=== PATIENT | male | born 1990 | race Caucasian/White ===

== ENCOUNTER 2017-05-09 11:09 | Emergency (ER) | payer SELFPAY ==
[2017-05-09 11:13] VITALS: BP 137/91
--- NOTE | 2017-05-09 11:36 | ER Document Report ---
ED Oral Problem - General Chief Complaint: Toothache Stated Complaint: TOOTH PAIN Time Seen by Provider: 05/09/17 11:22 Notes: Patient comes in the emergency room complaining of left back lower molar dental pain. Patient states he has a history of dental problems states this 1 is been there for a year or year and a half and that it only started acting up again 2- 3 days ago and now it has swelling around that tooth with a foul taste in his mouth and some white stuff coming from the gum. TRAVEL OUTSIDE OF THE [place] IN LAST 30 DAYS: No - HPI Patient complains to provider of: Swelling of face Onset: Other - 3 days Onset: Gradual Quality of pain: Sharp, Throbbing Severity: Moderate Pain Level: 3 Context: Fractured tooth Swollen jaw/face: Mild Associated symptoms: Chills, Facial pain, Headache, Jaw pain Worsened by: Heat Similar symptoms previously: Yes Recently seen / treated by doctor/dentist: No - Related Data Allergies/Adverse Reactions: No Known Allergies Allergy (Verified 05/09/17 11:12) Past Medical History - General Information source: Patient - Social History Smoking Status: Current Every Day Smoker Cigarette use (# per day): Yes - 1 pack per day Chew tobacco use (# tins/day): No Smoking Education Provided: Yes Frequency of alcohol use: None Drug Abuse: None Lives with: Family, Spouse/Significant other Family History: Reviewed & Not Pertinent Patient has suicidal ideation: No Patient has homicidal ideation: No Pulmonary Medical History: Reports: Hx Asthma Renal/ Medical History: Denies: Hx Peritoneal Dialysis - Immunizations Hx Diphtheria, Pertussis, Tetanus Vaccination: No Review of Systems - Review of Systems Constitutional: No symptoms reported EENT: Dental problem Cardiovascular: No symptoms reported Respiratory: No symptoms reported Gastrointestinal: No symptoms reported Genitourinary: No symptoms reported Male Genitourinary: No symptoms reported Musculoskeletal: No symptoms reported Skin: No symptoms reported Hematologic/Lymphatic: No symptoms reported Neurological/Psychological: No symptoms reported -: Yes All other systems reviewed and negative Physical Exam - Vital signs Vitals: Temp Pulse Resp BP Pulse Ox 98.3 F 94 16 137/91 H 99 05/09/17 11:12 05/09/17 11:12 05/09/17 11:12 05/09/17 11:12 05/09/17 11:12 Interpretation: Hypertensive - General General appearance: Alert, Other - Uncomfortable appearing In distress: Mild - HEENT Head: Normocephalic, Tenderness, Other - External exam patient's face shows some mild swelling on the left lower jaw/left mandible area. There is no fluctuance and there is no induration at this time. Mucous membranes: Normal, Moist, Other - Examination patient's oral cavity shows that he has severe dental decay throughout. The left back molar and the molar in front of that 117 and 18 total has enamel that is fracture or decayed. There is an area on the lateral side of the left back gum that is protruding with exudate that is expressible with pressure applied to the gum. There is an opening so it is draining currently. No I&D is needed. Pharynx: Normal - Respiratory Respiratory status: No respiratory distress Chest status: Nontender Breath sounds: Normal Chest palpation: Normal - Cardiovascular Rhythm: Regular Heart sounds: Normal auscultation Murmur: No - Skin Skin Temperature: Warm Skin Moisture: Dry Skin Color: Normal, [place] Course - Vital Signs Vital signs: Temp Pulse Resp BP Pulse Ox 98.3 F 94 16 137/91 H 99 05/09/17 11:12 05/09/17 11:12 05/09/17 11:12 05/09/17 11:12 05/09/17 11:12 - Transfer of Care Notes: 05/09/17 11:29 I offered patient a dental block and he refused. He also asked me or inform me the last time he had dental pain eroding for 5 mg oxycodone and he says that was not strong enough. I have informed patient that I hardly ever give narcotic medication for dental pain. Patient also states that he is going to have a an appointment with the new dental clinic that opened up just down the street. Discharge - Discharge Clinical Impression: Dental abscess Condition: Good Disposition: HOME, SELF-CARE Instructions: Abscess ([facility]), Clindamycin ([facility]), Toothache ([facility]) Additional Instructions: As we stated we cannot fix this problem here in the emergency room. You need to follow-up with a dentist as soon as possible. I highly recommend that she follow-up with that clinic that just opened as you indicated you would like to do. Also he may use warm salt water swishes. He may also use warm compresses to the side of the face to help with discomfort and swelling. I am writing you for an antibiotic a pain medication and a anti-inflammatory pain medication. As I have informed you if you do not have prescription coverage and you have a phone that handles application,s you can put in the phone and look for an eric called "Boxfish" this will give you discount on the antibiotic. I am using this antibiotic because for the type abscess you have seen pus coming from around the gumline amoxicillin will not handle this./Penicillin will not handle this. Return to ER if you have any concerns or problems or if you have any increase in size of the tooth. Prescriptions: Clindamycin HCl 300 mg PO Q6 #40 capsule Ibuprofen 800 mg PO TID PRN #30 tablet PRN Reason: For Pain Scale 4-5 Tramadol HCl 50 mg PO TID #15 tablet
== END 2017-05-09 11:40 | disposition home or self-care (01) ==
LOC: ER 11:09
DX: K04.7 Periapical abscess without sinus (principal); K08.89 Other specified disorders of teeth and supporting structures; R22.0 Localized swelling, mass and lump, head; F17.210 Nicotine dependence, cigarettes, uncomplicated
CPT/HCPCS: 99282

== ENCOUNTER 2018-12-16 12:27 | Emergency (ER) | payer SELFPAY ==
--- NOTE | 2018-12-16 15:01 | ER Document Report ---
HPI - HPI Time Seen by Provider: 12/16/18 14:31 Pain Level: 1 Notes: Patient is a 28-year-old male presented to the emergency department chief complaint of bilateral feet pain and rash. 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 Patient denies any history of similar incidences. Past Medical History - General Information source: Patient - Social History Smoking Status: Current Every Day Smoker Chew tobacco use (# tins/day): No Frequency of alcohol use: Social Drug Abuse: None Family History: Reviewed & Not Pertinent Patient has suicidal ideation: No Patient has homicidal ideation: No Pulmonary Medical History: Reports: Hx Asthma Renal/ Medical History: Denies: Hx Peritoneal Dialysis - Immunizations Hx Diphtheria, Pertussis, Tetanus Vaccination: No Vertical Provider Document - CONSTITUTIONAL Notes: PHYSICAL EXAMINATION: GENERAL: Well-appearing, well-nourished and in no acute distress. HEAD: Atraumatic, normocephalic. EYES: Pupils equal round extraocular movements intact, conjunctiva are normal. ENT: Nares patent NECK: Normal range of motion LUNGS: No respiratory distress Musculoskeletal: Normal range of motion NEUROLOGICAL: Normal speech, normal gait. PSYCH: Normal mood, normal affect. SKIN: Multiple red areas with satellite lesions, induration, no fluctuance noted to bilateral feet and ankles. - INFECTION CONTROL TRAVEL OUTSIDE OF THE [place] IN LAST 30 DAYS: No Course - Re-evaluation Re-evalutation: Patient's physical examination is most consistent with cellulitis. Patient will be started on antibiotics and encouraged to use Epsom salt soaks as discussed. ED return precautions were discussed and patient verbalized understanding and agreement with same. - Vital Signs Vital signs: Temp Pulse Resp BP Pulse Ox 98.1 F 75 16 141/88 H 98 12/16/18 12:34 12/16/18 12:34 12/16/18 12:34 12/16/18 12:34 12/16/18 12:34 Discharge - Discharge Clinical Impression: Skin infection Condition: Stable Disposition: HOME, SELF-CARE Additional Instructions: Please take antibiotics as prescribed. Please wear clean socks every day. When you get home from work please take your boots and socks off and allow the areas to air dry. Return to the emergency department for any new or worsening symptom s. For the pain please take ibuprofen 600 mg every 6 hours. Prescriptions: Cephalexin [Cephalexin 500 MG Tablet] 1 tab PO BID #14 tablet
[2018-12-16 15:16] VITALS: BP 136/74
== END 2018-12-16 15:17 | disposition home or self-care (01) ==
LOC: ER 12:27
DX: L08.9 Local infection of the skin and subcutaneous tissue, unspecified (principal); M79.671 Pain in right foot; M79.672 Pain in left foot; F17.200 Nicotine dependence, unspecified, uncomplicated; J45.909 Unspecified asthma, uncomplicated
CPT/HCPCS: 99283

== ENCOUNTER 2019-04-17 17:24 | Emergency (ER) | payer SELFPAY ==
[2019-04-17] MEDS ORDERED: KETOROLAC TROMETHAMINE INJ/PF 30 MG/1 ML SDV IV ONE ×2 (17:32→18:17)
--- NOTE | 2019-04-17 17:33 | ER Document Report ---
ED Medical Screen (RME) - General Chief Complaint: Flank Pain Stated Complaint: FLANK PAIN Time Seen by Provider: 04/17/19 17:30 Mode of Arrival: Ambulatory Information source: Patient Notes: Patient presents complaining of right flank pain that started yesterday. Patient denies any fever nausea vomiting or urinary symptoms. Patient denies any significant medical history. I have greeted and performed a rapid initial assessment of this patient. A comprehensive ED assessment and evaluation of the patient, analysis of test results and completion of the medical decision making process will be conducted by additional ED providers. TRAVEL OUTSIDE OF THE [place] IN LAST 30 DAYS: No - Related Data Allergies/Adverse Reactions: No Known Allergies Allergy (Verified 12/16/18 12:28) Past Medical History - Social History Chew tobacco use (# tins/day): No Frequency of alcohol use: Occasional Drug Abuse: Marijuana Pulmonary Medical History: Reports: Hx Asthma Renal/ Medical History: Denies: Hx Peritoneal Dialysis - Immunizations Hx Diphtheria, Pertussis, Tetanus Vaccination: No Physical Exam - Back Back: CVA tenderness - Right
[2019-04-17] MEDS ORDERED: NORMAL SALINE 1000 ML 1,000 ML IV ONE (17:45)
[2019-04-17] MEDS ORDERED: METOCLOPRAMIDE HCL INJ/PF 10 MG/2 ML SDV IV ONE (18:18)
--- NOTE | 2019-04-17 18:21 | ER Document Report ---
ED GI/ - General Chief Complaint: Flank Pain Stated Complaint: FLANK PAIN Time Seen by Provider: 04/17/19 17:30 Mode of Arrival: Ambulatory Notes: Patient is a otherwise healthy 28-year-old male presents to the emergency department for right flank pain. Patient voices his flank pain started yesterday. Patient's denying any dysuria, vomiting but is admitting to nausea. Patient is denying any penile discharge or testicle pain. Patient denies any history of kidney stones or any trauma noted to his right back. Patient's denying any radiation of the pain. Patient voices he also has a generalized headache because he feels as though "the pain is making me nauseous." TRAVEL OUTSIDE OF THE [place] IN LAST 30 DAYS: No - Related Data Allergies/Adverse Reactions: No Known Allergies Allergy (Verified 12/16/18 12:28) Past Medical History - General Information source: Patient - Social History Smoking Status: Current Every Day Smoker Chew tobacco use (# tins/day): No Frequency of alcohol use: Occasional Drug Abuse: Marijuana Family History: Reviewed & Not Pertinent Patient has suicidal ideation: No Patient has homicidal ideation: No Pulmonary Medical History: Reports: Hx Asthma Renal/ Medical History: Denies: Hx Peritoneal Dialysis - Immunizations Hx Diphtheria, Pertussis, Tetanus Vaccination: No Review of Systems - Review of Systems Constitutional: denies: Fever EENT: No symptoms reported Cardiovascular: No symptoms reported Respiratory: No symptoms reported Gastrointestinal: See HPI Genitourinary: See HPI Male Genitourinary: See HPI Musculoskeletal: See HPI Skin: No symptoms reported Hematologic/Lymphatic: No symptoms reported Neurological/Psychological: No symptoms reported Physical Exam - Vital signs Vitals: Temp Pulse Resp BP Pulse Ox 97.8 F 92 22 H 152/90 H 100 04/17/19 17:32 04/17/19 17:32 04/17/19 17:32 04/17/19 17:32 04/17/19 17:32 - Notes Notes: GENERAL: Alert, interacts well. No acute distress. HEAD: Normocephalic, atraumatic. EYES: Pupils equal, round, and reactive to light. Extraocular movements intact. ENT: Oral mucosa moist, tongue midline. NECK: Full range of motion. Supple. Trachea midline. LUNGS: Clear to auscultation bilaterally, no wheezes, rales, or rhonchi. No respiratory distress. HEART: Regular rate and rhythm. No murmur ABDOMEN: Soft, non-tender. Non-distended. Bowel sounds present in all 4 naz drants. EXTREMITIES: Moves all 4 extremities spontaneously. No edema, normal radial and dorsalis pedis pulses bilaterally. No cyanosis. BACK: no cervical, thoracic, lumbar midline tenderness. No saddle anesthesia, normal distal neurovascular exam. Right CVA tenderness noted, no left CVA tenderness noted. NEUROLOGICAL: Alert and oriented x3. Normal speech. cranial nerves II through XII grossly intact PSYCH: Normal affect, normal mood. SKIN: Warm, dry, normal turgor. No rashes or lesions noted. 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 Testicles nonerythematous, nontender bilaterally, circumcised penis no active discharge at the meatus. Course - Re-evaluation Re-evalutation: 04/17/19 20:06 Laboratory 04/17/19 04/17/19 04/17/19 18:05 18:05 19:29 WBC 14.5 H RBC 4.58 Hgb 13.9 Hct 41.9 MCV 92 MCH 30.4 MCHC 33.2 RDW 13.7 Plt Count 337 Lymph % (Auto) 10.4 L [place] % (Auto) 11.0 Eos % (Auto) 0.7 Baso % (Auto) 0.4 Absolute Neuts (auto) 11.2 H Absolute Lymphs (auto) 1.5 Absolute Monos (auto) 1.6 H Absolute Eos (auto) 0.1 Absolute Basos (auto) 0.1 Seg Neutrophils % 77.5 Sodium 139.1 Potassium 4.1 Chloride 101 Carbon Dioxide 25 Anion Gap 13 BUN 16 Creatinine 0.83 Est GFR ( Amer) > 60 Est GFR (MDRD) Non-Af > 60 Glucose 89 Calcium 9.9 Total Bilirubin 0.9 Direct Bilirubin 0.1 Neonat Total Bilirubin Not Reportable Neonat Direct Bilirubin Not Reportable Neonat Indirect Bili Not Reportable AST 34 ALT 56 Alkaline Phosphatase 55 Total Protein 7.9 Albumin 4.4 Urine Color YELLOW Urine Appearance CLEAR Urine pH 6.0 Ur Specific [place] 1.028 Urine Protein 100 H Urine Glucose (UA) NEGATIVE Urine Ketones NEGATIVE Urine Blood SMALL H Urine Nitrite (Reflex) NEGATIVE Urine Bilirubin NEGATIVE Urine Urobilinogen 2.0 H Leukocyte Esterase Rfl NEGATIVE Urine RBC (Auto) 22 Urine WBC (Reflex) 3 Squamous Epi Cells Auto <1 Urine Mucus (Auto) FEW Urine Ascorbic Acid NEGATIVE Abdomen/Pelvis CT 04/17/19 18:18 IMPRESSION: Numerous bilateral renal lesions of low and heterogeneous attenuati on, findings consistent with polycystic kidney disease. Correlate with clinical findings. No evidence of urinary tract calculus or hydronephrosis. Discussed patient's labs and CT results with him at bedside. Discussed need for close follow-up with nephrology. Discussed to stay away from NSAIDs until follow-up with nephrology and cleared. Patient voices he overall does feel better after treatments in the emergency department. Stable for discharge - Vital Signs Vital signs: Temp Pulse Resp BP Pulse Ox 97.8 F 92 22 H 152/90 H 100 04/17/19 17:32 04/17/19 17:32 04/17/19 17:32 04/17/19 17:32 04/17/19 17:32 - Laboratory Result Diagrams: 04/17/19 18:05 04/17/19 18:05 Laboratory results interpreted by me: 04/17/19 04/17/19 18:05 19:29 WBC 14.5 H Lymph % (Auto) 10.4 L Absolute Neuts (auto) 11.2 H Absolute Monos (auto) 1.6 H Urine Protein 100 H Urine Blood SMALL H Urine Urobilinogen 2.0 H Discharge - Discharge Clinical Impression: Polycystic kidney disease Condition: Stable Disposition: HOME, SELF-CARE Additional Instructions: As we discussed you have been seen and treated in the emergency department for your flank pain. Your CT images show polycystic kidney disease. You should follow-up with nephrology, phone numbers will be provided in this packet. Please stay away from NSAIDs until you follow-up with nephrology and are cleared. This means no Motrin, ibuprofen. Please return to the emergency department for any concerns. Forms: Return to Work Referrals: REAL ANDREA MD [ACTIVE STAFF] - Follow up as needed
[2019-04-17 18:27] LABS: ABSOLUTE BASOPHILS # (AUTO) 0.1 10^3/uL (0.0-0.2); ABSOLUTE EOSINOPHILS # (AUTO) 0.1 10^3/uL (0.0-0.6); ABSOLUTE LYMPHOCYTES (AUTO) 1.5 10^3/uL (0.5-4.7); ABSOLUTE MONOCYTES (AUTO) 1.6 10^3/uL (0.1-1.4); ABSOLUTE NEUT (AUTO) 11.2 10^3/uL (1.7-8.2); BASOPHILS % (AUTO) 0.4 % (0-2); EOSINOPHILS % (AUTO) 0.7 % (0-6); HEMATOCRIT 41.9 % (37.9-51.0); HEMOGLOBIN 13.9 g/dL (13.5-17.0); LYMPHOCYTES % (AUTO) 10.4 % (13-45); MEAN CORPUSCULAR HEMOGLOBIN 30.4 pg (27.0-33.4); MEAN CORPUSCULAR HGB CONC 33.2 g/dL (32.0-36.0); MEAN CORPUSCULAR VOLUME 92 fl (80-97); PLATELET COUNT 337 10^3/uL (150-450); RED BLOOD COUNT 4.58 10^6/uL (4.35-5.55); RED CELL DISTRIBUTION WIDTH 13.7 % (11.5-14.0); SEGMENTED NEUTROPHILS % (AUTO) 77.5 % (42-78); TOTAL CELLS COUNTED % (AUTO) 100 %; WHITE BLOOD COUNT 14.5 10^3/uL (4.0-10.5)
[2019-04-17 18:41] LABS: ALBUMIN 4.4 g/dL (3.5-5.0); ALKALINE PHOSPHATASE 55 U/L (38-126); ANION GAP 13 (5-19); ASPARTATE AMINO TRANSFERASE 34 U/L (17-59); BILIRUBIN,DIRECT 0.1 mg/dL (0.0-0.4); BILIRUBIN,TOTAL 0.9 mg/dL (0.2-1.3); BLOOD UREA NITROGEN 16 mg/dL (7-20); CALCIUM 9.9 mg/dL (8.4-10.2); CARBON DIOXIDE 25 mmol/L (22-30); CHLORIDE 101 mmol/L (98-107); GLUCOSE 89 mg/dL (75-110); POTASSIUM 4.1 mmol/L (3.6-5.0); TOTAL PROTEIN 7.9 g/dL (6.3-8.2)
--- NOTE | 2019-04-17 19:20 | RADIOLOGY REPORT (SQ) ---
EXAM DESCRIPTION: CT ABD/PELVIS NO ORAL OR IV COMPLETED DATE/TIME: 04/17/2019 7:00 pm REASON FOR STUDY: R flank pain COMPARISON: None. TECHNIQUE: CT scan of the abdomen and pelvis performed without intravenous or oral contrast. Images reviewed with lung, soft tissue, and bone windows. Reconstructed coronal and sagittal MPR images revi ewed. All images stored on PACS. All CT scanners at this facility use dose modulation, iterative reconstruction, and/or weight based d osing when appropriate to reduce radiation dose to as low as reasonably achievable (ALARA). [facility]: Dose Right [facility]: CareDose [facility]: Dose Right [facility]: Teradose 4D [facility]: Smart Foneshow RADIATION DOSE: 272 mGy cm LIMITATIONS: None. FINDINGS: LOWER CHEST: No significant findings. No nodules or infiltrates. NON-CONTRASTED LIVER, SPLEEN, ADRENALS: Evaluation limited by lack of IV contrast. No identified sign ificant masses. PANCREAS: No masses. No peripancreatic inflammatory changes. GALLBLADDER: No identified stones by CT criteria. No inflammatory changes to suggest cholecystitis. RIGHT KIDNEY AND URETER: Numerous renal lesions of low and heterogeneous attenuation. Assessment limi gini by lack of IV contrast. No significant calcifications. No hydronephrosis or hydroureter. LEFT KIDNEY AND URETER: Numerous renal lesions of low and heterogeneous attenuation. Assessment limi gini by lack of IV contrast. No significant calcifications. No hydronephrosis or hydroureter. AORTA AND RETROPERITONEUM: No aneurysm. No retroperitoneal masses or adenopathy. BOWEL AND PERITONEAL CAVITY: No obvious masses or inflammatory changes. No free fluid. APPENDIX: Normal. PELVIS, BLADDER, AND ABDOMINAL WALL:No abnormal masses. No free fluid. Bladder normal. BONES: No significant findings. OTHER: No other significant finding. IMPRESSION: Numerous bilateral renal lesions of low and heterogeneous attenuation, findings consiste nt with polycystic kidney disease. Correlate with clinical findings. No evidence of urinary tract c alculus or hydronephrosis. COMMENT: Quality ID # [id number]: Final reports with documentation of one or more dose reduction techniques (e.g., Automated exposure control, adjustment of the mA and/or kV according to patient size, use of iterative reconstruction technique) TECHNICAL DOCUMENTATION: JOB ID: [id number] [employer]- All Rights Reserved Reading location - IP/workstation name: [email or web address]
[2019-04-17 19:54] LABS: APPEARANCE,URINE CLEAR; BILIRUBIN,URINE NEGATIVE (NEGATIVE); COLOR,URINE YELLOW; GLUCOSE, URINE NEGATIVE (NEGATIVE); KETONES,URINE NEGATIVE (NEGATIVE); PROTEIN,URINE 100 mg/dL (NEGATIVE); URINE SPECIFIC GRAVITY 1.028
[2019-04-17] MEDS ORDERED: HYDROCODONE/ACETAMINOPHEN 5-325 MG (6 TAB/ER DISP) PO PRN (20:08)
[2019-04-17 20:22] VITALS: BP 116/67
== END 2019-04-17 20:31 | disposition home or self-care (01) ==
LOC: ER 17:24
DX: Q61.3 Polycystic kidney, unspecified (principal); R10.9 Unspecified abdominal pain; F17.200 Nicotine dependence, unspecified, uncomplicated
CPT/HCPCS: 36415; 85025; 80053; 81001; 74176; J1885; J2765; J7030; 96361; 96374; 96375; 96376; 99284

== ENCOUNTER 2019-04-22 13:11 | Inpatient (IN) | payer SELFPAY ==
--- NOTE | 2019-04-22 14:03 | ER Document Report ---
ED Medical Screen (RME) - General Chief Complaint: Flank Pain Stated Complaint: FLANK PAIN Time Seen by Provider: 04/22/19 14:01 Mode of Arrival: Ambulatory Information source: Patient Notes: 28-year-old male presented to ED for right flank pain. He states he was here Thursday was told he had polycystic kidney disease he was given some medicine for the pain and was told to follow-up with urology or nephrology. He states he has not been able to get up with anybody as yet. He is here because he has increase in pain. Denies any nausea or vomiting. States he smokes a pack a day states he does not drink or use any illicit drugs. I have greeted and performed a rapid initial assessment of this patient. A comprehensive ED assessment and evaluation of the patient, analysis of test re sults and completion of medical decision making process will be conducted by an additional ED providers. TRAVEL OUTSIDE OF THE [place] IN LAST 30 DAYS: No - Related Data Allergies/Adverse Reactions: No Known Allergies Allergy (Verified 12/16/18 12:28) Past Medical History Pulmonary Medical History: Reports: Hx Asthma Renal/ Medical History: Denies: Hx Peritoneal Dialysis - Immunizations Hx Diphtheria, Pertussis, Tetanus Vaccination: No Physical Exam - Vital signs Vitals: Temp Pulse Resp BP Pulse Ox 98.3 F 107 H 18 131/68 H 100 04/22/19 13:21 04/22/19 13:21 04/22/19 13:21 04/22/19 13:21 04/22/19 13:21 Course - Vital Signs Vital signs: Temp Pulse Resp BP Pulse Ox 98.3 F 107 H 18 131/68 H 100 04/22/19 13:21 04/22/19 13:21 04/22/19 13:21 04/22/19 13:21 04/22/19 13:21
[2019-04-22 14:35] LABS: ABSOLUTE BASOPHILS # (AUTO) 0.1 10^3/uL (0.0-0.2); ABSOLUTE LYMPHOCYTES (AUTO) 1.1 10^3/uL (0.5-4.7); ABSOLUTE MONOCYTES (AUTO) 1.9 10^3/uL (0.1-1.4); ABSOLUTE NEUT (AUTO) 15.8 10^3/uL (1.7-8.2); BASOPHILS % (AUTO) 0.3 % (0-2); EOSINOPHILS % (AUTO) 0.1 % (0-6); HEMATOCRIT 37.6 % (37.9-51.0); LYMPHOCYTES % (AUTO) 5.7 % (13-45); MEAN CORPUSCULAR HEMOGLOBIN 31.8 pg (27.0-33.4); MEAN CORPUSCULAR HGB CONC 34.6 g/dL (32.0-36.0); MEAN CORPUSCULAR VOLUME 92 fl (80-97); MONOCYTES % (AUTO) 10.3 % (3-13); PLATELET COUNT 326 10^3/uL (150-450); RED BLOOD COUNT 4.09 10^6/uL (4.35-5.55); RED CELL DISTRIBUTION WIDTH 13.4 % (11.5-14.0); SEGMENTED NEUTROPHILS % (AUTO) 83.6 % (42-78); TOTAL CELLS COUNTED % (AUTO) 100 %; WHITE BLOOD COUNT 18.9 10^3/uL (4.0-10.5)
[2019-04-22 14:41] LABS: APPEARANCE,URINE SLIGHTLY-CLOUDY; BILIRUBIN,URINE NEGATIVE (NEGATIVE); COLOR,URINE YELLOW; GLUCOSE, URINE NEGATIVE (NEGATIVE); KETONES,URINE NEGATIVE (NEGATIVE); PROTEIN,URINE 100 mg/dL (NEGATIVE); URINE SPECIFIC GRAVITY 1.027; UROBILINOGEN,URINE NEGATIVE mg/dL (<2.0)
[2019-04-22 15:01] LABS: ALBUMIN 3.9 g/dL (3.5-5.0); ALKALINE PHOSPHATASE 69 U/L (38-126); ANION GAP 9 (5-19); ASPARTATE AMINO TRANSFERASE 25 U/L (17-59); BILIRUBIN,DIRECT 0.2 mg/dL (0.0-0.4); BILIRUBIN,TOTAL 0.6 mg/dL (0.2-1.3); BLOOD UREA NITROGEN 9 mg/dL (7-20); CALCIUM 9.3 mg/dL (8.4-10.2); CARBON DIOXIDE 30 mmol/L (22-30); CHLORIDE 98 mmol/L (98-107); GLUCOSE 133 mg/dL (75-110); POTASSIUM 4.1 mmol/L (3.6-5.0); TOTAL PROTEIN 7.3 g/dL (6.3-8.2)
--- NOTE | 2019-04-22 16:06 | RADIOLOGY REPORT (SQ) ---
EXAM DESCRIPTION: U/S RETROPERITON (RENAL/AORTA) COMPLETED DATE/TIME: 04/22/2019 3:54 pm REASON FOR STUDY: Right flank pain COMPARISON: None. TECHNIQUE: Dynamic and static grayscale images acquired of the kidneys and bladder and recorded on P ACS. Additional selected color Doppler and spectral images recorded. LIMITATIONS: None. FINDINGS: RIGHT KIDNEY: 14.2 cm. Multiple cysts, some with dependent echoes. Largest approximate ly 3 cm. No solid or suspicious masses. No hydronephrosis. No calcifications. LEFT KIDNEY: 13.6 cm. Multiple cysts, some with dependent echoes. No solid or suspicious masses. No hydronephrosis. 5 mm calculus midpole. BLADDER: No masses. OTHER FINDINGS: No other significant finding. IMPRESSION: Polycystic kidneys. 5 mm nonobstructing left renal calculus. TECHNICAL DOCUMENTATION: JOB ID: [id number] [employer]- All Rights Reserved Reading location - IP/workstation name: [email or web address]
[2019-04-22] MEDS ORDERED: LIDOCAINE 5% (700 MG) TRANSDERMAL ADH..PATCH TP ONE (16:47)
[2019-04-22] MEDS ORDERED: CYCLOBENZAPRINE HCL 10 MG TABLET PO ONE (16:48)
--- NOTE | 2019-04-22 17:31 | RADIOLOGY REPORT (SQ) ---
EXAM DESCRIPTION: CHEST 2 VIEWS COMPLETED DATE/TIME: 04/22/2019 5:20 pm REASON FOR STUDY: rib pain, cough COMPARISON: None. EXAM PARAMETERS: NUMBER OF VIEWS: two views TECHNIQUE: Digital Frontal and Lateral radiographic views of the chest acquired. RADIATION DOSE: NA LIMITATIONS: none FINDINGS: LUNGS AND PLEURA: No opacities, masses or pneumothorax. No pleural effusion. MEDIASTINUM AND HILAR STRUCTURES: No masses or contour abnormalities. HEART AND VASCULAR STRUCTURES: Heart normal size. No evidence for failure. BONES: No acute findings. HARDWARE: None in the chest. OTHER: No other significant finding. IMPRESSION: 1. NO ACUTE RADIOGRAPHIC FINDING IN THE CHEST 2. In view of the given history, further evaluation with plain film right rib detail series may be h elpful if clinically indicated. TECHNICAL DOCUMENTATION: JOB ID: [id number] [employer]- All Rights Reserved Reading location - IP/workstation name: [email or web address]
[2019-04-22] MEDS ORDERED: ACETAMINOPHEN 325 MG TABLET PO ONE (18:15)
[2019-04-22 18:38] LABS: INTERNATIONAL RATION (INR) 1.15; PROTHROMBIN TIME 14.8 SEC (11.4-15.4)
[2019-04-22 19:40] LABS: VENOUS BLOOD BASE EXCESS 2.9 mmol/L; VENOUS BLOOD HCO3 26.5 mmol/L (20-32); VENOUS BLOOD PCO2 37.2 mmHg (35-63); VENOUS BLOOD PH 7.47 (7.30-7.42)
[2019-04-22] MEDS ORDERED: VANCOMYCIN HCL INJ 1000 MG VIAL IV ONE (20:02)
[2019-04-22] MEDS ORDERED: PIPERACILLIN/TAZOBACTAM 3.375 GM VIAL IV ONE (20:02)
--- NOTE | 2019-04-22 20:27 | RADIOLOGY REPORT (SQ) ---
EXAM DESCRIPTION: CT CHEST ANGIOGRAPHY WITHOUT THEN WITH IV CONTRAST COMPLETED DATE/TME: 04/22/2019 18:29 EXAM: CT CHEST ANGIOGRAPHY WITHOUT THEN WITH IV CONTRAST HISTORY: fever, IVDA, pleuritic CP COMPARISON: None Available TECHNIQUE: Contiguous axial images of the chest were obtained from the thoracic inlet to the level of the upper abdomen after the administration of intravenous contrast followed by reconstruction images. Volume rendering images were performed. This exam was performed according to our departmental dose-optimization program, which includes automated exposure control, adjustment of the mA and/or kV according to patient size and/or use of iterative reconstruction technique. FINDINGS: The aorta is of normal contour and tapering. There is no discrete filling defect within the pulmonary arterial system to suggest pulmonary emboli. There is no pleural fluid collection. Linear and bandlike opacities at the lower lungs may represent scar versus subsegmental atelectasis. There is a small amount of fluid within the superior pericardial. There is no parenchymal consolidation or pneumothorax. Multiple partially visualized renal cysts compatible with polycystic renal disease.. IMPRESSION: No CT evidence of acute pulmonary emboli. Linear and bandlike opacities at the lower lungs may represent scar versus subsegmental atelectasis.
--- NOTE | 2019-04-22 21:49 | EKG REPORT ---
SEVERITY:- OTHERWISE NORMAL ECG - SINUS TACHYCARDIA : Confirmed by: Ken Strange MD 22-Apr-2019 21:48:51
[2019-04-22] MEDS ORDERED: NORMAL SALINE 1000 ML 1,000 ML IV ONE (22:07)
--- NOTE | 2019-04-22 22:36 | ER Document Report ---
Entered by XIAO IRWIN SCRIBE 04/22/19 1648 Acting as scribe for:JELLY WHARTON DO ED GI/ - General Chief Complaint: Flank Pain Stated Complaint: FLANK PAIN Time Seen by Provider: 04/22/19 14:01 Mode of Arrival: Ambulatory Information source: Patient Notes: Patient is a 28-year-old male who presents to the emergency department today for complaints of right sided reproducible chest wall pain. Patient states he is worried that it could be his kidney as he has a history of polycystic kidney disease. Patient complains of subjective fevers. Patient states it hurts when he moves. Patient denies any cough, trauma, or abdominal pain. TRAVEL OUTSIDE OF THE [place] IN LAST 30 DAYS: No - Related Data Allergies/Adverse Reactions: No Known Allergies Allergy (Verified 12/16/18 12:28) Past Medical History - General Information source: Patient - Social History Smoking Status: Current Every Day Smoker Cigarette use (# per day): Yes Chew tobacco use (# tins/day): No Frequency of alcohol use: None Drug Abuse: None Family History: Reviewed & Not Pertinent Patient has suicidal ideation: No Patient has homicidal ideation: No Pulmonary Medical History: Reports: Hx Asthma Renal/ Medical History: Reports: Other - Polycystic kidney disease - Immunizations Hx Diphtheria, Pertussis, Tetanus Vaccination: No Review of Systems - Review of Systems Constitutional: See HPI, Other - subjective fevers EENT: No symptoms reported Cardiovascular: No symptoms reported Respiratory: See HPI, Hurts to breathe - and move, Other - right sided chest wall pain. denies: Cough Gastrointestinal: denies: Abdominal pain Genitourinary: No symptoms reported Male Genitourinary: No symptoms reported Musculoskeletal: No symptoms reported Skin: No symptoms reported Hematologic/Lymphatic: No symptoms reported Neurological/Psychological: No symptoms reported -: Yes All other systems reviewed and negative Physical Exam - Vital signs Vitals: Temp Pulse Resp BP Pulse Ox 98.3 F 107 H 18 131/68 H 100 04/22/19 13:21 04/22/19 13:21 04/22/19 13:21 04/22/19 13:21 04/22/19 13:21 Interpretation: Normal - General General appearance: Appears well, Alert In distress: None - Cachectic. Poor dentition. Track cruz bilateral upper and lower extremities. - HEENT Head: Normocephalic, Atraumatic Eyes: Normal Pupils: PERRL - Respiratory Respiratory status: No respiratory distress Chest status: Tender - Right lower chest wall tenderness to palpation Breath sounds: Normal Chest palpation: Normal - Cardiovascular Rhythm: Regular, Tachycardia Heart sounds: Normal auscultation Murmur: No - Abdominal Inspection: Normal Distension: No distension Bowel sounds: Normal Tenderness: Nontender Organomegaly: No organomegaly - Back Back: Normal, CVA tenderness - Right CVA - Extremities General upper extremity: Normal inspection, Nontender, Normal color, Normal ROM, Normal temperature General lower extremity: Normal inspection, Nontender, Normal color, Normal ROM, Normal temperature, Normal weight bearing. No: Karlee's sign - Neurological Neuro grossly intact: Yes Cognition: Normal Orientation: AAOx4 Rudy Coma Scale Eye Opening: Spontaneous Rudy Coma Scale Verbal: Oriented [place] Coma Scale Motor: Obeys Commands Rudy Coma Scale Total: 15 Speech: Normal Motor strength normal: LUE, RUE, LLE, RLE Sensory: Normal - Psychological Associated symptoms: Normal affect, Normal mood - Skin Skin Temperature: Warm Skin Moisture: Dry Skin Color: Normal Course - Re-evaluation Re-evalutation: 04/22/19 22:33 Patient is a 28-year-old male who came into the emergency department complaining of right side pain. Patient had CT 4 days ago with no acute findings. Renal ultrasound with no acute findings. Chest x-ray with no acute findings. Pain is worse with movement. Patient was going to be potentially discharged but then s piked a fever of 102.8. Admits to history of IV drug abuse. Last use about a week ago. Concern for endocarditis. CTA chest performed with no evidence for acute abnormalities. No skin lesions. No evidence for meningitis. No back pain or concern for epidural abscess. Vancomycin and Zosyn were initiated in the emergency department. Blood and urine cultures have been sent. Patient has been discussed with the hospitalist service and will be admitted to a medical bed. He is agreeable to this plan. - Vital Signs Vital signs: Temp Pulse Resp BP Pulse Ox 99.2 F 92 18 116/68 97 04/22/19 21:52 04/22/19 21:52 04/22/19 21:52 04/22/19 21:52 04/22/19 21:52 - Laboratory Result Diagrams: 04/22/19 14:23 04/22/19 14:23 Laboratory results interpreted by me: 04/22/19 04/22/19 04/22/19 14:23 14:23 14:23 WBC 18.9 H RBC 4.09 L Hgb 13.0 L Hct 37.6 L Lymph % (Auto) 5.7 L Absolute Neuts (auto) 15.8 H Absolute Monos (auto) 1.9 H Seg Neutrophils % 83.6 H VBG pH Glucose 133 H POC Glucose Urine Protein 100 H Urine Blood SMALL H 04/22/19 04/22/19 18:36 18:55 WBC RBC Hgb Hct Lymph % (Auto) Absolute Neuts (auto) Absolute Monos (auto) Seg Neutrophils % VBG pH 7.47 H Glucose POC Glucose 129 H Urine Protein Urine Blood Critical Care Note - Critical Care Note Total time excluding time spent on procedures (mins): 40 - Evaluation and management of fever and a IV drug abuser, re-evaluations, work-up of fever of unknown origin, counseling of patient and family Discharge - Discharge Clinical Impression: IV drug abuse Fever Qualifiers: Fever type: unspecified Qualified Code(s): R50.9 - Fever, unspecified Condition: Stable Disposition: ADMITTED INPATIENT Admitting Provider: Trev (Hospitalist) Unit Admitted: Medical Floor Prescriptions: Cyclobenzaprine HCl [Flexeril 10 Mg Tablet] 10 mg PO TID #30 tablet Lidocaine [Lidoderm 5% (700 mg) Transdermal Patch] 1 patch TP DAILY #30 adh..patch I personally performed the services described in the documentation, reviewed and edited the documentation which was dictated to the scribe in my presence, and it accurately records my words and actions.
[2019-04-22] MEDS ORDERED: MEROPENEM 1 GM VIAL IV SCH (23:00)
[2019-04-22] MEDS ORDERED: CHLORPROMAZINE HCL INJ 25 MG/1 ML AMPULE IV PRN (23:02)
[2019-04-22] MEDS ORDERED: ACETAMINOPHEN 325 MG TABLET PO PRN (23:02)
[2019-04-22] MEDS ORDERED: DIAZEPAM INJ 10 MG/2 ML DISP.SYRIN IV PRN (23:02)
[2019-04-22] MEDS ORDERED: NALBUPHINE HCL INJ 10 MG/1 ML AMPULE IV PRN ×3 (23:04→23:14)
[2019-04-22] MEDS ORDERED: HYDRALAZINE HCL INJ/PF 20 MG/1 ML SDV IV PRN (23:04)
[2019-04-22] MEDS ORDERED: LEVALBUTEROL HCL NEB 0.63 MG/3 ML AMPUL NEB PRN (23:04)
[2019-04-22] MEDS ORDERED: NICOTINE 21 MG/24 HR PATCH.TD24 TD PRN (23:04)
[2019-04-22] MEDS: DIAZEPAM 5 MG TABLET PO SCH (23:40)
[2019-04-23] MEDS ORDERED: IBUPROFEN 800 MG TABLET PO PRN (00:57)
[2019-04-23] MEDS ORDERED: MEROPENEM 1 GM VIAL IV PRN (01:00)
--- NOTE | 2019-04-23 02:59 | PDOC H&P ---
History of Present Illness Admission Date/PCP: 04/22/19 22:47 No local PCP Patient complains of: Right chest pain History of Present Illness: AMARA HAGEN is a 28 year old male who represented to the emergency room with a one-week history of right-sided chest pain. He admits severe sharp stabbing pain in his right lower lateral and posterior thoracic region that has been constant for the last 4 days. The pain is worsened with pressure to the area, chest movement or physical activity. The pain has been accompanied by subjective episodic fever with chills. He denies other associated or accompanying signs and symptoms. He denies prior similar episodes. He further admits to the use of intravenous heroin and acknowledges that his last use was 7 to 10 days ago. He has not identified any other aggravating or ameliorating factors for his pain. In the emergency room he was found to have a negative CTA of the chest but did have a fever of 102.8 F and an 18,900 white blood count. Initial intravenous antibiotic doses of vancomycin and Zosyn were given by the emergency room provider prior to consulting the hospitalist service. Patient was subsequently admitted to the hospital for further evaluation and treatment. Past Medical History Cardiac Medical History: Denies: Coronary Artery Disease, Hypertension Pulmonary Medical History: Reports: Asthma Denies: Chronic Obstructive Pulmonary Disease (COPD), Pneumonia, Respiratory Failure EENT Medical History: Denies: Ears - Hearing loss, Nose - Allergic rhinitis Neurological Medical History: Denies: Hemorrhagic CVA, Ischemic CVA, Multiple Sclerosis, Seizures Endocrine Medical History: Denies: Diabetes Mellitus Type 1, Diabetes Mellitus Type 2, Hyperthyroidism, Hypothyroidism, Obesity Renal/ Medical History: Reports: Other - Polycystic kidney disease Denies: Chronic Kidney Disease, Nephrolithiasis Malignancy Medical History: Reports: None GI Medical History: Denies: Cirrhosis, Crohn's Disease, Gastroesophageal Reflux Disease, Hepatitis, Peptic Ulcer Disease, Ulcerative Colitis Musculoskeltal Medical History: Denies: Arthritis, Gout Skin Medical History: Denies: Eczema, Psoriasis Psychiatric Medical History: Reports: Substance Abuse, Tobacco Dependency Denies: Alcohol Dependency Hematology: Denies: Anemia, Bleeding Tendencies Infectious Medical History: Reports: None Past Surgical History Past Surgical History: Reports: None Social History Information Source: Patient Lives with: Parents Smoking Status: Current Every Day Smoker Cigarettes Packs Per Day: 1 Electronic Cigarette use?: No Frequency of Alcohol Use: Rare Hx Recreational Drug Use: Yes Drugs: Heroin Hx Prescription Drug Abuse: No - Advance Directive Resuscitation Status: Full Code Surrogate healthcare decision maker:: Apoorva Louis Family History Family History: Malignancy, Other - Polycystic kidney disease. denies: CAD, DM, Hypertension Parental Family History Reviewed: Yes Children Family History Reviewed: No Sibling(s) Family History Reviewed.: Yes Medication/Allergy Home Medications: Clindamycin HCl 300 mg PO Q6 #40 capsule 05/09/17 Ibuprofen 800 mg PO TID PRN #30 tablet 05/09/17 Tramadol HCl 50 mg PO TID #15 tablet 05/09/17 Cephalexin [Cephalexin 500 MG Tablet] 1 tab PO BID #14 tablet 12/16/18 Cyclobenzaprine HCl [Flexeril 10 Mg Tablet] 10 mg PO TID #30 tablet 04/22/19 Lidocaine [Lidoderm 5% (700 mg) Transdermal Patch] 1 patch TP DAILY #30 adh..patch 04/22/19 Allergies/Adverse Reactions: No Known Allergies Allergy (Verified 12/16/18 12:28) Review of Systems Constitutional: PRESENT: as per HPI, chills, fever(s). ABSENT: headache(s) Eyes: ABSENT: visual disturbances, other - Eye pain Ears: ABSENT: hearing changes, other - Ear pain Nose, Mouth, and Throat: ABSENT: mouth pain, sore throat Cardiovascular: PRESENT: as per HPI, chest pain. ABSENT: palpitations Respiratory: ABSENT: cough, dyspnea Gastrointestinal: ABSENT: abdominal pain, constipation, diarrhea, nausea, vomiting Genitourinary: ABSENT: dysuria, hematuria Musculoskeletal: ABSENT: joint swelling, muscle weakness Integumentary: ABSENT: pruritus, rash Neurological: ABSENT: confusion, convulsions, focal weakness, memory loss, syncope Psychiatric: ABSENT: anxiety, depression Endocrine: ABSENT: cold intolerance, heat intolerance Hematologic/Lymphatic: ABSENT: easy bleeding, easy bruising Allergic/Immunologic: ABSENT: seasonal rhinorrhea Physical Exam Vital Signs: Temp Pulse Resp BP Pulse Ox 99.2 F 92 18 116/68 97 04/22/19 21:52 04/22/19 21:52 04/22/19 21:52 04/22/19 21:52 04/22/19 21:52 Intake & Output 04/20/19 04/21/19 04/22/19 23:59 23:59 23:59 Weight 65.6 kg General appearance: PRESENT: no acute distress, cooperative Head exam: PRESENT: atraumatic, normocephalic Eye exam: PRESENT: conjunctiva pink. ABSENT: conjunctival injection, scleral icterus Ear exam: PRESENT: normal external ear exam. ABSENT: bleeding, drainage Mouth exam: PRESENT: dry mucosa, neck supple Teeth exam: PRESENT: poor dentation. ABSENT: dental tenderness Neck exam: ABSENT: thyromegaly, tracheal deviation Respiratory exam: PRESENT: chest wall tenderness - Inferior aspect of the right lateral and posterior chest wall, clear to auscultation natividad, symmetrical, unlabored Cardiovascular exam: PRESENT: RRR. ABSENT: clicks, gallop, rubs Pulses: PRESENT: normal radial pulses, normal dorsalis pedis pul Vascular exam: PRESENT: normal capillary refill. ABSENT: pallor GI/Abdominal exam: PRESENT: normal bowel sounds, soft Rectal exam: PRESENT: deferred Extremities exam: ABSENT: joint swelling, pedal edema Musculoskeletal exam: PRESENT: full ROM, other - Multiple "needle tracks" present on bilateral upper and lower extremities.. ABSENT: deformity, dislocation, tenderness Neurological exam: PRESENT: alert, oriented to person, oriented to place, oriented to time, oriented to situation, CN II-XII grossly intact. ABSENT: motor sensory deficit Psychiatric exam: PRESENT: appropriate affect, normal mood Skin exam: PRESENT: dry, intact, warm. ABSENT: jaundice, rash, urticaria Results Laboratory Results: 04/22/19 14:23 04/22/19 14:23 04/22/19 04/22/19 04/22/19 14:23 14:23 14:23 WBC 18.9 H RBC 4.09 L Hgb 13.0 L Hct 37.6 L MCV 92 MCH 31.8 MCHC 34.6 RDW 13.4 Plt Count 326 Seg Neutrophils % 83.6 H VBG pH VBG pCO2 VBG HCO3 VBG Base Excess Sodium 137.2 Potassium 4.1 Chloride 98 Carbon Dioxide 30 Anion Gap 9 BUN 9 Creatinine 0.77 Est GFR ( Amer) > 60 Glucose 133 H Lactic Acid Calcium 9.3 Total Bilirubin 0.6 AST 25 Alkaline Phosphatase 69 Total Protein 7.3 Albumin 3.9 Lipase 40.3 Urine Color YELLOW Urine Appearance SLIGHTLY-CLOUDY Urine pH 5.0 Ur Specific [place] 1.027 Urine Protein 100 H Urine Glucose (UA) NEGATIVE Urine Ketones NEGATIVE Urine Blood SMALL H Urine RBC (Auto) 7 04/22/19 04/22/19 18:55 18:55 WBC RBC Hgb Hct MCV MCH MCHC RDW Plt Count Seg Neutrophils % VBG pH 7.47 H VBG pCO2 37.2 VBG HCO3 26.5 VBG Base Excess 2.9 Sodium Potassium Chloride Carbon Dioxide Anion Gap BUN Creatinine Est GFR ( Amer) Glucose Lactic Acid 1.2 Calcium Total Bilirubin AST Alkaline Phosphatase Total Protein Albumin Lipase Urine Color Urine Appearance Urine pH Ur Specific [place] Urine Protein Urine Glucose (UA) Urine Ketones Urine Blood Urine RBC (Auto) Impressions: Renal Ultrasound 04/22/19 14:04 IMPRESSION: Polycystic kidneys. 5 mm nonobstructing left renal calculus. Chest X-Ray 04/22/19 16:48 IMPRESSION: 1. NO ACUTE RADIOGRAPHIC FINDING IN THE CHEST 2. In view of the given history, further evaluation with plain film right rib detail series may be helpful if clinically indicated. Chest/Abdomen CTA 04/22/19 18:29 IMPRESSION: No CT evidence of acute pulmonary emboli. Linear and bandlike opacities at the lower lungs may represent scar versus subsegmental atelectasis. Assessment and Plan - Diagnosis (1) SIRS (systemic inflammatory response syndrome) Is this a current diagnosis for this admission?: Yes (2) Leukocytosis Qualifiers: Leukocytosis type: bandemia Qualified Code(s): D72.825 - Bandemia Is this a current diagnosis for this admission?: Yes (3) Intravenous drug abuse, episodic Is this a current diagnosis for this admission?: Yes (4) Polycystic kidney disease Is this a current diagnosis for this admission?: Yes (5) Fever Qualifiers: Fever type: due to other condition Qualified Code(s): R50.81 - Fever pr esenting with conditions classified elsewhere Is this a current diagnosis for this admission?: Yes (6) Right-sided chest wall pain Is this a current diagnosis for this admission?: Yes - Plan Summary Summary: Patient will be admitted to the medical floor and treated with routine supporti ve and symptomatic cares. He will receive IV antibiotics including vancomycin and meropenem pending results of his blood and urine cultures as well as his echocardiogram and RODRÍGUEZ. Tylenol will be used to control his fever and he will be given Valium 5 mg p.o. every 6 hours with available Valium 10 mg IV q. one hour, Thorazine 25 mg IV every 8 hours for control of substance withdrawal. Smoking cessation was advised and counseled briefly at the bedside. A nicotine replacement patch is available for the patient's use, if he desires. Nubain 5 to 10 mg IV every 3 hours will be available for pain control using a sliding scale for pain and dosing. Daily CBCs and metabolic profiles will be part of the patient's ongoing management. Physical therapy will be consulted for evaluation of the patient's right-sided chest wall pain which would appear to be of musculoskeletal etiology as it is reproducible with palpation over or movement of the right 10th rib - Time Time Spent with patient: 25-34 minutes Smoking Cessation Education: 3 to 10 minutes Anticipated discharge: Home - Inpatient Certification Based on my medical assessment, after consideration of the patient's comorbi dities, presenting symptoms, or acuity I expect that the services needed warrant INPATIENT care.: Yes I certify that my determination is in accordance with my understanding of Medicare's requirements for reasonable and necessary INPATIENT services [42 CFR 412.3e].: Yes Medical Necessity: Failure to Improve With Outpatient Therapy, Need Close Monitoring Due to Risk of Patient Decompensation, Need For IV Fluids, Need for Pain Control, Need for IV Antibiotics, Risk of Complication if Not Cared For in Hospital
[2019-04-23] MEDS ORDERED: MEROPENEM 1 GM VIAL ONE (03:39)
[2019-04-23] MEDS ORDERED: VANCOMYCIN HCL INJ 1000 MG VIAL ONE (03:39)
[2019-04-23] MEDS: MEROPENEM 1 GM in NORMAL SALINE 50 ML IV SCH ×3 (03:59→17:34)
[2019-04-23] MEDS ORDERED: VANCOMYCIN HCL INJ 1000 MG VIAL IV PRN (05:00)
[2019-04-23] MEDS ORDERED: VANCOMYCIN HCL 1,000 MG in DEXTROSE 5%-WATER 250 ML IV ONE (06:00)
[2019-04-23] MEDS: DIAZEPAM 5 MG TABLET PO SCH ×3 (06:20→17:24)
[2019-04-23] MEDS: KETOROLAC TROMETHAMINE INJ/PF 30 MG/1 ML SDV IV SCH ×3 (06:20→17:23)
[2019-04-23] MEDS: HEPARIN SOD (PORCINE) 5,000 UNIT/ML 1 ML VIAL SUBCUT SCH ×3 (06:20→22:34)
[2019-04-23 13:15] LABS: ABSOLUTE BASOPHILS # (AUTO) 0.1 10^3/uL (0.0-0.2); ABSOLUTE EOSINOPHILS # (AUTO) 0.1 10^3/uL (0.0-0.6); ABSOLUTE LYMPHOCYTES (AUTO) 1.8 10^3/uL (0.5-4.7); ABSOLUTE MONOCYTES (AUTO) 1.7 10^3/uL (0.1-1.4); ABSOLUTE NEUT (AUTO) 13.8 10^3/uL (1.7-8.2); BASOPHILS % (AUTO) 0.5 % (0-2); EOSINOPHILS % (AUTO) 0.8 % (0-6); HEMATOCRIT 38.2 % (37.9-51.0); HEMOGLOBIN 12.9 g/dL (13.5-17.0); LYMPHOCYTES % (AUTO) 10.1 % (13-45); MEAN CORPUSCULAR HEMOGLOBIN 31.3 pg (27.0-33.4); MEAN CORPUSCULAR HGB CONC 33.8 g/dL (32.0-36.0); MEAN CORPUSCULAR VOLUME 93 fl (80-97); PLATELET COUNT 313 10^3/uL (150-450); RED BLOOD COUNT 4.13 10^6/uL (4.35-5.55); RED CELL DISTRIBUTION WIDTH 13.5 % (11.5-14.0); SEGMENTED NEUTROPHILS % (AUTO) 78.6 % (42-78); TOTAL CELLS COUNTED % (AUTO) 100 %; WHITE BLOOD COUNT 17.5 10^3/uL (4.0-10.5)
[2019-04-23 13:29] LABS: URINE AMPHETAMINES SCREEN NEGATIVE; URINE BARBITURATES SCREEN NEGATIVE; URINE BENZODIAZEPINES SCREEN NEGATIVE; URINE COCAINE SCREEN NEGATIVE; URINE METHADONE SCREEN NEGATIVE; URINE PHENCYCLIDINE SCREEN NEGATIVE
[2019-04-23 13:39] LABS: ALBUMIN 3.6 g/dL (3.5-5.0); ALKALINE PHOSPHATASE 65 U/L (38-126); ANION GAP 12 (5-19); ASPARTATE AMINO TRANSFERASE 21 U/L (17-59); BILIRUBIN,DIRECT 0.2 mg/dL (0.0-0.4); BILIRUBIN,TOTAL 0.4 mg/dL (0.2-1.3); BLOOD UREA NITROGEN 13 mg/dL (7-20); CALCIUM 9.2 mg/dL (8.4-10.2); CARBON DIOXIDE 26 mmol/L (22-30); CHLORIDE 103 mmol/L (98-107); GLUCOSE 105 mg/dL (75-110); POTASSIUM 4.7 mmol/L (3.6-5.0)
[2019-04-23 13:43] LABS: URINE MARIJUANA (THC) SCREEN UNCONFIRMED POSITIVE
[2019-04-23] MEDS ORDERED: VANCOMYCIN HCL INJ 1000 MG VIAL IV SCH (14:00)
[2019-04-23] MEDS: VANCOMYCIN HCL 750 MG in DEXTROSE 5%-WATER 250 ML IV SCH ×2 (14:02→22:33)
--- NOTE | 2019-04-23 14:03 | PDOC PROGRESS REPORT ---
Subjective Progress Note for:: 04/23/19 Subjective:: 28-year-old male with past medical history of IV drug abuse presented to ED complaining of 3 days of right-sided chest pain, sharp, stabbing, radiating to right lower lateral and posterior thoracic region. In ED he was found to be febrile, with leukocytosis, will start on IV vancomycin and Zosyn, CTA came back negative for PE. 04/23/2019. Patient comfortably resting in bed, chest pain has improved, denies any fever, chills, nausea, vomiting, diarrhea, constipation or any urinary symptoms. Patient stated that 3 days ago he injected himself heroin and is also abusing marijuana. Reason For Visit: SIRS Physical Exam Vital Signs: Temp Pulse Resp BP Pulse Ox 98.8 F 100 16 136/84 H 96 04/23/19 08:00 04/23/19 08:27 04/23/19 08:27 04/23/19 08:00 04/23/19 08:27 Intake & Output 04/22/19 04/23/19 04/24/19 06:59 06:59 05:59 Intake Total 1360 650 Balance 1360 650 Weight 65.2 kg General appearance: PRESENT: no acute distress, well-developed, well-nourished Head exam: PRESENT: atraumatic, normocephalic Teeth exam: PRESENT: dental caries, poor dentation Respiratory exam: PRESENT: clear to auscultation natividad. ABSENT: rales, rhonchi, wheezes Cardiovascular exam: PRESENT: RRR. ABSENT: diastolic murmur, rubs, systolic murmur Pulses: PRESENT: normal dorsalis pedis pul Neurological exam: PRESENT: alert, awake, oriented to person, oriented to place, oriented to time, oriented to situation, CN II-XII grossly intact. ABSENT: motor sensory deficit Results Laboratory Results: 04/23/19 12:55 04/22/19 04/22/19 04/22/19 14:23 14:23 14:23 WBC 18.9 H RBC 4.09 L Hgb 13.0 L Hct 37.6 L MCV 92 MCH 31.8 MCHC 34.6 RDW 13.4 Plt Count 326 Seg Neutrophils % 83.6 H VBG pH VBG pCO2 VBG HCO3 VBG Base Excess Sodium 137.2 Potassium 4.1 Chloride 98 Carbon Dioxide 30 Anion Gap 9 BUN 9 Creatinine 0.77 Est GFR ( Amer) > 60 Glucose 133 H Lactic Acid Calcium 9.3 Total Bilirubin 0.6 AST 25 Alkaline Phosphatase 69 Total Protein 7.3 Albumin 3.9 Lipase 40.3 Urine Color YELLOW Urine Appearance SLIGHTLY-CLOUDY Urine pH 5.0 Ur Specific [place] 1.027 Urine Protein 100 H Urine Glucose (UA) NEGATIVE Urine Ketones NEGATIVE Urine Blood SMALL H Urine RBC (Auto) 7 04/22/19 04/22/19 04/23/19 18:55 18:55 12:55 WBC 17.5 H RBC 4.13 L Hgb 12.9 L Hct 38.2 MCV 93 MCH 31.3 MCHC 33.8 RDW 13.5 Plt Count 313 Seg Neutrophils % 78.6 H VBG pH 7.47 H VBG pCO2 37.2 VBG HCO3 26.5 VBG Base Excess 2.9 Sodium Potassium Chloride Carbon Dioxide Anion Gap BUN Creatinine Est GFR ( Amer) Glucose Lactic Acid 1.2 Calcium Total Bilirubin AST Alkaline Phosphatase Total Protein Albumin Lipase Urine Color Urine Appearance Urine pH Ur Specific [place] Urine Protein Urine Glucose (UA) Urine Ketones Urine Blood Urine RBC (Auto) Impressions: Renal Ultrasound 04/22/19 14:04 IMPRESSION: Polycystic kidneys. 5 mm nonobstructing left renal calculus. Chest X-Ray 04/22/19 16:48 IMPRESSION: 1. NO ACUTE RADIOGRAPHIC FINDING IN THE CHEST 2. In view of the given history, further evaluation with plain film right rib detail series may be helpful if clinically indicated. Chest/Abdomen CTA 04/22/19 18:29 IMPRESSION: No CT evidence of acute pulmonary emboli. Linear and bandlike opacities at the lower lungs may represent scar versus subsegmental atelectasis. Assessment and Plan - Diagnosis (1) SIRS (systemic inflammatory response syndrome) Is this a current diagnosis for this admission?: Yes Plan: Due to underlying infectious process. Patient endorsing IV heroin abuse. Received 1 dose of vancomycin and Zosyn in ED. Day 2 IV antibiotics. Day 2 IV vancomycin. Day 1 IV meropenem. Given history of IV drug abuse patient is very high risk of endocarditis. Cultures no growth so far. Pending TTE and RODRÍGUEZ. Continue empiric IV antibiotics, IV fluids, monitor vitals, follow-up cultures. (2) Heroin abuse Is this a current diagnosis for this admission?: Yes Plan: Patient endorsing heroin IV injection 3 days ago. Urine toxicology positive for opiates and marijuana. I have extensively certified genetic counselor him on abstinence. We will monitor for withdrawal. (3) Poor dentition Is this a current diagnosis for this admission?: Yes Plan: Patient has extremely poor dentition. The body of most of his teeth are missing just the roots partially visible. I have counseled the patient on importance of good oral hygiene espicially given his history of IV drug abuse and possible endocarditis. I have advised him to follow-up with his dentist for possible removal of his partially missing teeth. (4) Polycystic kidney disease Is this a current diagnosis for this admission?: Yes Plan: Incidental finding on renal ultrasound. Patient endorses family history of polycystic kidney disease. Patient asked to follow-up with nephrology upon discharge. Monitor kidney function as patient is receiving vancomycin. Avoid nephrotoxic meds.
[2019-04-23] MEDS ORDERED: NALBUPHINE HCL INJ 10 MG/1 ML AMPULE IV PRN ×2 (14:30)
[2019-04-23] MEDS ORDERED: AMPICILLIN SOD/SULBACTAM 1.5 GM VIAL ONE (22:33)
[2019-04-24] MEDS: DIAZEPAM 5 MG TABLET PO SCH ×5 (00:38→23:25)
[2019-04-24] MEDS: KETOROLAC TROMETHAMINE INJ/PF 30 MG/1 ML SDV IV SCH ×5 (00:38→23:24)
[2019-04-24] MEDS: MEROPENEM 1 GM in NORMAL SALINE 50 ML IV SCH ×3 (01:26→18:17)
[2019-04-24] MEDS: VANCOMYCIN HCL 750 MG in DEXTROSE 5%-WATER 250 ML IV SCH (05:49)
[2019-04-24] MEDS: HEPARIN SOD (PORCINE) 5,000 UNIT/ML 1 ML VIAL SUBCUT SCH ×2 (05:50→22:46)
[2019-04-24 06:35] LABS: ABSOLUTE BASOPHILS # (AUTO) 0.1 10^3/uL (0.0-0.2); ABSOLUTE EOSINOPHILS # (AUTO) 0.1 10^3/uL (0.0-0.6); ABSOLUTE LYMPHOCYTES (AUTO) 1.6 10^3/uL (0.5-4.7); ABSOLUTE MONOCYTES (AUTO) 1.8 10^3/uL (0.1-1.4); ABSOLUTE NEUT (AUTO) 12.8 10^3/uL (1.7-8.2); BASOPHILS % (AUTO) 0.6 % (0-2); EOSINOPHILS % (AUTO) 0.9 % (0-6); HEMOGLOBIN 11.9 g/dL (13.5-17.0); LYMPHOCYTES % (AUTO) 9.9 % (13-45); MEAN CORPUSCULAR VOLUME 91 fl (80-97); MONOCYTES % (AUTO) 11.2 % (3-13); PLATELET COUNT 359 10^3/uL (150-450); RED BLOOD COUNT 3.84 10^6/uL (4.35-5.55); RED CELL DISTRIBUTION WIDTH 13.6 % (11.5-14.0); SEGMENTED NEUTROPHILS % (AUTO) 77.4 % (42-78); TOTAL CELLS COUNTED % (AUTO) 100 %; WHITE BLOOD COUNT 16.5 10^3/uL (4.0-10.5)
[2019-04-24 06:57] LABS: ALBUMIN 3.1 g/dL (3.5-5.0); ALKALINE PHOSPHATASE 60 U/L (38-126); ANION GAP 8 (5-19); ASPARTATE AMINO TRANSFERASE 29 U/L (17-59); BILIRUBIN,DIRECT 0.2 mg/dL (0.0-0.4); BILIRUBIN,TOTAL 0.3 mg/dL (0.2-1.3); BLOOD UREA NITROGEN 18 mg/dL (7-20); CALCIUM 9.3 mg/dL (8.4-10.2); CARBON DIOXIDE 27 mmol/L (22-30); CHLORIDE 105 mmol/L (98-107); GLUCOSE 106 mg/dL (75-110); POTASSIUM 4.7 mmol/L (3.6-5.0); TOTAL PROTEIN 6.4 g/dL (6.3-8.2)
[2019-04-24 07:21] LABS: VANCOMYCIN,TROUGH 7.6 ug/mL (5.0-20.0)
--- NOTE | 2019-04-24 10:41 | PDOC PROGRESS REPORT ---
Subjective Progress Note for:: 04/24/19 Subjective:: 28-year-old male with past medical history of IV drug abuse presented to ED complaining of 3 days of right-sided chest pain, sharp, stabbing, radiating to right lower lateral and posterior thoracic region. In ED he was found to be febrile, with leukocytosis, will start on IV vancomycin and Zosyn, CTA came back negative for PE. 04/23/2019. Patient comfortably resting in bed, chest pain has improved, denies any fever, chills, nausea, vomiting, diarrhea, constipation or any urinary symptoms. Patient stated that 3 days ago he injected himself heroin and is also abusing marijuana. 04/24/2019. No acute events overnight, denies any fever, chills, nausea, vomiting, diarrhea, constipation or any urinary symptoms. Ambulatory, p.o. tolerant, having normal bowel and bladder movements. Reason For Visit: SIRS Physical Exam Vital Signs: Temp Pulse Resp BP Pulse Ox 98.2 F 100 15 137/64 H 98 04/23/19 23:42 04/23/19 23:42 04/23/19 23:42 04/23/19 23:42 04/23/19 23:42 Intake & Output 04/23/19 04/24/19 04/25/19 07:59 06:59 06:59 Intake Total Balance Weight General appearance: PRESENT: no acute distress, well-developed, well-nourished Head exam: PRESENT: atraumatic, normocephalic Eye exam: PRESENT: conjunctiva pink, EOMI, PERRLA. ABSENT: scleral icterus Ear exam: PRESENT: normal external ear exam Mouth exam: PRESENT: moist, tongue midline Teeth exam: PRESENT: poor dentation Neck exam: ABSENT: carotid bruit, JVD, lymphadenopathy, thyromegaly Respiratory exam: PRESENT: clear to auscultation natividad. ABSENT: rales, rhonchi, wheezes Cardiovascular exam: PRESENT: RRR. ABSENT: diastolic murmur, rubs, systolic murmur Pulses: PRESENT: normal dorsalis pedis pul Vascular exam: PRESENT: normal capillary refill GI/Abdominal exam: PRESENT: normal bowel sounds, soft. ABSENT: distended, guarding, mass, organolmegaly, rebound, tenderness Rectal exam: PRESENT: deferred Extremities exam: PRESENT: full ROM. ABSENT: calf tenderness, clubbing, pedal edema Neurological exam: PRESENT: alert, awake, oriented to person, oriented to place, oriented to time, oriented to situation, CN II-XII grossly intact. ABSENT: motor sensory deficit Psychiatric exam: PRESENT: appropriate affect, normal mood. ABSENT: homicidal ideation, suicidal ideation Skin exam: PRESENT: dry, intact, warm. ABSENT: cyanosis, rash Results Laboratory Results: 04/24/19 05:45 04/24/19 05:45 04/23/19 04/23/19 04/24/19 12:55 12:55 05:45 WBC 17.5 H 16.5 H RBC 4.13 L 3.84 L Hgb 12.9 L 11.9 L Hct 38.2 35.0 L MCV 93 91 MCH 31.3 31.0 MCHC 33.8 34.0 RDW 13.5 13.6 Plt Count 313 359 Seg Neutrophils % 78.6 H 77.4 Sodium 141.0 Potassium 4.7 Chloride 103 Carbon Dioxide 26 Anion Gap 12 BUN 13 Creatinine 0.84 Est GFR ( Amer) > 60 Glucose 105 Calcium 9.2 Total Bilirubin 0.4 AST 21 Alkaline Phosphatase 65 Total Protein 7.0 Albumin 3.6 04/24/19 05:45 WBC RBC Hgb Hct MCV MCH MCHC RDW Plt Count Seg Neutrophils % Sodium 139.8 Potassium 4.7 Chloride 105 Carbon Dioxide 27 Anion Gap 8 BUN 18 Creatinine 0.77 Est GFR ( Amer) > 60 Glucose 106 Calcium 9.3 Total Bilirubin 0.3 AST 29 Alkaline Phosphatase 60 Total Protein 6.4 Albumin 3.1 L Impressions: Renal Ultrasound 04/22/19 14:04 IMPRESSION: Polycystic kidneys. 5 mm nonobstructing left renal calculus. Chest X-Ray 04/22/19 16:48 IMPRESSION: 1. NO ACUTE RADIOGRAPHIC FINDING IN THE CHEST 2. In view of the given history, further evaluation with plain film right rib detail series may be helpful if clinically indicated. Chest/Abdomen CTA 04/22/19 18:29 IMPRESSION: No CT evidence of acute pulmonary emboli. Linear and bandlike opacities at the lower lungs may represent scar versus subsegmental atelectasis. Assessment and Plan - Diagnosis (1) SIRS (systemic inflammatory response syndrome) Is this a current diagnosis for this admission?: Yes Plan: Resolved. Vitals WNL, WBC trending down. Due to underlying infectious process. Patient endorsing IV heroin abuse. Received 1 dose of vancomycin and Zosyn in ED. Day 3 IV antibiotics. Day 3 IV vancomycin. Day 2 IV meropenem. Given history of IV drug abuse patient is very high risk of endocarditis. Cultures no growth so far. Pending TTE and RODRÍGUEZ. Continue empiric IV antibiotics, IV fluids, monitor vitals, follow-up cultures. (2) Heroin abuse Is this a current diagnosis for this admission?: Yes Plan: No sign of withdrawal. Patient endorsing heroin IV injection 3 days prior to admission. Urine toxicology positive for opiates and marijuana. I have extensively crisis intervention counselor him on abstinence. We will monitor for withdrawal. (3) Poor dentition Is this a current diagnosis for this admission?: Yes Plan: Patient has extremely poor dentition. The body of most of his teeth are missing just the roots partially visible. I have counseled the patient on importance of good oral hygiene espicially given his history of IV drug abuse and possible endocarditis. I have advised him to follow-up with his dentist for possible removal of his partially missing teeth. (4) Polycystic kidney disease Is this a current diagnosis for this admission?: Yes Plan: Incidental finding on renal ultrasound. Patient endorses family history of polycystic kidney disease. Patient asked to follow-up with nephrology upon discharge. Monitor kidney function as patient is receiving vancomycin. Avoid nephrotoxic meds.
[2019-04-24] MEDS: VANCOMYCIN HCL 1,250 MG in DEXTROSE 5%-WATER 250 ML IV SCH ×2 (14:51→22:46)
[2019-04-25] MEDS: KETOROLAC TROMETHAMINE INJ/PF 30 MG/1 ML SDV IV SCH (05:21)
[2019-04-25] MEDS: DIAZEPAM 5 MG TABLET PO SCH (05:24)
[2019-04-25] MEDS: MEROPENEM 1 GM in NORMAL SALINE 50 ML IV SCH ×3 (05:25→18:19)
[2019-04-25] MEDS: HEPARIN SOD (PORCINE) 5,000 UNIT/ML 1 ML VIAL SUBCUT SCH ×4 (05:27→21:43)
[2019-04-25] MEDS: VANCOMYCIN HCL 1,250 MG in DEXTROSE 5%-WATER 250 ML IV SCH ×3 (05:27→22:04)
[2019-04-25 06:26] LABS: ABSOLUTE BASOPHILS # (AUTO) 0.1 10^3/uL (0.0-0.2); ABSOLUTE EOSINOPHILS # (AUTO) 0.2 10^3/uL (0.0-0.6); ABSOLUTE LYMPHOCYTES (AUTO) 1.5 10^3/uL (0.5-4.7); TOTAL CELLS COUNTED % (AUTO) 100 %
[2019-04-25 06:32] LABS: ABSOLUTE MONOCYTES (AUTO) 1.1 10^3/uL (0.1-1.4); ABSOLUTE NEUT (AUTO) 9.6 10^3/uL (1.7-8.2); BASOPHILS % (AUTO) 0.7 % (0-2); EOSINOPHILS % (AUTO) 1.9 % (0-6); HEMATOCRIT 33.4 % (37.9-51.0); HEMOGLOBIN 11.5 g/dL (13.5-17.0); LYMPHOCYTES % (AUTO) 11.8 % (13-45); MEAN CORPUSCULAR HEMOGLOBIN 31.5 pg (27.0-33.4); MEAN CORPUSCULAR HGB CONC 34.5 g/dL (32.0-36.0); MEAN CORPUSCULAR VOLUME 91 fl (80-97); MONOCYTES % (AUTO) 8.8 % (3-13); PLATELET COUNT 433 10^3/uL (150-450); RED BLOOD COUNT 3.66 10^6/uL (4.35-5.55); RED CELL DISTRIBUTION WIDTH 13.7 % (11.5-14.0); SEGMENTED NEUTROPHILS % (AUTO) 76.8 % (42-78); WHITE BLOOD COUNT 12.5 10^3/uL (4.0-10.5)
[2019-04-25 06:45] LABS: ANION GAP 8 (5-19); BLOOD UREA NITROGEN 15 mg/dL (7-20); CALCIUM 8.7 mg/dL (8.4-10.2); CARBON DIOXIDE 26 mmol/L (22-30); CHLORIDE 104 mmol/L (98-107); GLUCOSE 106 mg/dL (75-110); POTASSIUM 4.5 mmol/L (3.6-5.0)
--- NOTE | 2019-04-25 09:05 | PDOC PROGRESS REPORT ---
Subjective Progress Note for:: 04/25/19 Subjective:: 28-year-old male with past medical history of IV drug abuse presented to ED complaining of 3 days of right-sided chest pain, sharp, stabbing, radiating to right lower lateral and posterior thoracic region. In ED he was found to be febrile, with leukocytosis, will start on IV vancomycin and Zosyn, CTA came back negative for PE. 04/23/2019. Patient comfortably resting in bed, chest pain has improved, denies any fever, chills, nausea, vomiting, diarrhea, constipation or any urinary symptoms. Patient stated that 3 days ago he injected himself heroin and is also abusing marijuana. 04/24/2019. No acute events overnight, denies any fever, chills, nausea, vomiting, diarrhea, constipation or any urinary symptoms. Ambulatory, p.o. tolerant, having normal bowel and bladder movements. 04/25/2019. No acute events overnight, denies any fever, chills, nausea, vomiti ng, diarrhea, constipation or any urinary symptoms. Pending 2D echo and RODRÍGUEZ. Reason For Visit: SIRS Physical Exam Vital Signs: Temp Pulse Resp BP Pulse Ox 98.2 F 82 17 143/74 H 98 04/25/19 07:21 04/25/19 07:21 04/25/19 07:21 04/25/19 07:21 04/25/19 07:21 Intake & Output 04/24/19 04/25/19 04/26/19 06:59 06:59 06:59 Intake Total 2950 Balance 2950 Weight 70.3 kg General appearance: PRESENT: no acute distress, well-developed, well-nourished Head exam: PRESENT: atraumatic, normocephalic Eye exam: PRESENT: conjunctiva pink, EOMI, PERRLA. ABSENT: scleral icterus Ear exam: PRESENT: normal external ear exam Mouth exam: PRESENT: moist, tongue midline Teeth exam: PRESENT: poor dentation Neck exam: ABSENT: carotid bruit, JVD, lymphadenopathy, thyromegaly Respiratory exam: PRESENT: clear to auscultation natividad. ABSENT: rales, rhonchi, wheezes Cardiovascular exam: PRESENT: RRR. ABSENT: diastolic murmur, rubs, systolic murmur Pulses: PRESENT: normal dorsalis pedis pul Vascular exam: PRESENT: normal capillary refill GI/Abdominal exam: PRESENT: normal bowel sounds, soft. ABSENT: distended, guarding, mass, organolmegaly, rebound, tenderness Rectal exam: PRESENT: deferred Extremities exam: PRESENT: full ROM. ABSENT: calf tenderness, clubbing, pedal edema Neurological exam: PRESENT: alert, awake, oriented to person, oriented to place, oriented to time, oriented to situation, CN II-XII grossly intact. ABSENT: motor sensory deficit Psychiatric exam: PRESENT: appropriate affect, normal mood. ABSENT: homicidal ideation, suicidal ideation Skin exam: PRESENT: dry, intact, warm. ABSENT: cyanosis, rash Results Laboratory Results: 04/25/19 06:09 04/25/19 06:09 04/25/19 04/25/19 06:09 06:09 WBC 12.5 H RBC 3.66 L Hgb 11.5 L Hct 33.4 L MCV 91 MCH 31.5 MCHC 34.5 RDW 13.7 Plt Count 433 Seg Neutrophils % 76.8 Sodium 137.7 Potassium 4.5 Chloride 104 Carbon Dioxide 26 Anion Gap 8 BUN 15 Creatinine 0.66 Est GFR ( Amer) > 60 Glucose 106 Calcium 8.7 04/22/19 14:23 Clean Catch Midstream Urine Culture - Final NO GROWTH 2 DAYS Impressions: Renal Ultrasound 04/22/19 14:04 IMPRESSION: Polycystic kidneys. 5 mm nonobstructing left renal calculus. Chest X-Ray 04/22/19 16:48 IMPRESSION: 1. NO ACUTE RADIOGRAPHIC FINDING IN THE CHEST 2. In view of the given history, further evaluation with plain film right rib detail series may be helpful if clinically indicated. Chest/Abdomen CTA 04/22/19 18:29 IMPRESSION: No CT evidence of acute pulmonary emboli. Linear and bandlike opacities at the lower lungs may represent scar versus subsegmental atelectasis. Assessment and Plan - Diagnosis (1) SIRS (systemic inflammatory response syndrome) Is this a current diagnosis for this admission?: Yes Plan: Resolved. Vitals WNL, WBC trending down. Due to underlying infectious process. Patient endorsing IV heroin abuse. Received 1 dose of vancomycin and Zosyn in ED. Day 4 IV antibiotics. Day 4 IV vancomycin. Day 3 IV meropenem. Given history of IV drug abuse patient is very high risk of endocarditis. Cultures no growth so far. Pending TTE and RODRÍGUEZ. Continue empiric IV antibiotics, IV fluids, monitor vitals, follow-up cultures. (2) Heroin abuse Is this a current diagnosis for this admission?: Yes Plan: No sign of withdrawal. Patient endorsing heroin IV injection 3 days prior to admission. Urine toxicology positive for opiates and marijuana. I have extensively correctional classification counselor him on abstinence. We will monitor for withdrawal. (3) Poor dentition Is this a current diagnosis for this admission?: Yes Plan: Patient has extremely poor dentition. The body of most of his teeth are missing just the roots partially visible. I have counseled the patient on importance of good oral hygiene espicially given his history of IV drug abuse and possible endocarditis. I have advised him to follow-up with his dentist for possible removal of his partially missing teeth. (4) Polycystic kidney disease Is this a current diagnosis for this admission?: Yes Plan: Incidental finding on renal ultrasound. Patient endorses family history of polycystic kidney disease. Patient asked to follow-up with nephrology upon discharge. Monitor kidney function as patient is receiving vancomycin. Avoid nephrotoxic meds.
[2019-04-25] MEDS ORDERED: LORAZEPAM INJ 2 MG/1 ML VIAL IV PRN (09:08)
[2019-04-26] MEDS: MEROPENEM 1 GM in NORMAL SALINE 50 ML IV SCH ×3 (02:06→18:50)
[2019-04-26] MEDS: VANCOMYCIN HCL 1,250 MG in DEXTROSE 5%-WATER 250 ML IV SCH ×3 (05:07→21:49)
[2019-04-26] MEDS: HEPARIN SOD (PORCINE) 5,000 UNIT/ML 1 ML VIAL SUBCUT SCH ×3 (05:52→21:49)
[2019-04-26 05:58] LABS: ABSOLUTE BASOPHILS # (AUTO) 0.1 10^3/uL (0.0-0.2); ABSOLUTE LYMPHOCYTES (AUTO) 1.3 10^3/uL (0.5-4.7); ABSOLUTE MONOCYTES (AUTO) 1.4 10^3/uL (0.1-1.4); ABSOLUTE NEUT (AUTO) 12.5 10^3/uL (1.7-8.2); BASOPHILS % (AUTO) 0.7 % (0-2); EOSINOPHILS % (AUTO) 0.3 % (0-6); HEMATOCRIT 36.3 % (37.9-51.0); HEMOGLOBIN 12.3 g/dL (13.5-17.0); LYMPHOCYTES % (AUTO) 8.3 % (13-45); MEAN CORPUSCULAR HEMOGLOBIN 30.8 pg (27.0-33.4); MEAN CORPUSCULAR VOLUME 91 fl (80-97); MONOCYTES % (AUTO) 8.8 % (3-13); PLATELET COUNT 552 10^3/uL (150-450); RED BLOOD COUNT 4.01 10^6/uL (4.35-5.55); RED CELL DISTRIBUTION WIDTH 13.8 % (11.5-14.0); SEGMENTED NEUTROPHILS % (AUTO) 81.9 % (42-78); TOTAL CELLS COUNTED % (AUTO) 100 %; WHITE BLOOD COUNT 15.3 10^3/uL (4.0-10.5)
[2019-04-26 06:29] LABS: VANCOMYCIN,TROUGH 15.8 ug/mL (5.0-20.0)
[2019-04-26 06:31] LABS: ALBUMIN 3.6 g/dL (3.5-5.0); ALKALINE PHOSPHATASE 62 U/L (38-126); ANION GAP 12 (5-19); ASPARTATE AMINO TRANSFERASE 42 U/L (17-59); BILIRUBIN,DIRECT 0.1 mg/dL (0.0-0.4); BILIRUBIN,TOTAL 0.4 mg/dL (0.2-1.3); BLOOD UREA NITROGEN 11 mg/dL (7-20); CALCIUM 9.7 mg/dL (8.4-10.2); CARBON DIOXIDE 28 mmol/L (22-30); CHLORIDE 98 mmol/L (98-107); GLUCOSE 102 mg/dL (75-110); POTASSIUM 4.4 mmol/L (3.6-5.0); TOTAL PROTEIN 7.2 g/dL (6.3-8.2)
[2019-04-26] MEDS ORDERED: METOPROLOL TARTRATE PF/INJ 5 MG/5 ML SDV IV PRN (08:37)
[2019-04-26] MEDS: LISINOPRIL 5 MG TABLET PO SCH (09:50)
[2019-04-26] MEDS ORDERED: DEXTROSE 40% GEL 15 GM TUBE PO PRN ×2 (15:04)
[2019-04-26] MEDS ORDERED: GLUCAGON,HUMAN RECOMB 1 MG INJ SUBCUT PRN (15:04)
[2019-04-26] MEDS ORDERED: DEXTROSE 50%-WATER 25 GM/50 ML DISP.SYRIN IV PRN ×2 (15:04)
--- NOTE | 2019-04-26 15:18 | PDOC PROGRESS REPORT ---
Subjective Progress Note for:: 04/26/19 Subjective:: 28-year-old male with past medical history of IV drug abuse presented to ED complaining of 3 days of right-sided chest pain, sharp, stabbing, radiating to right lower lateral and posterior thoracic region. In ED he was found to be febrile, with leukocytosis, will start on IV vancomycin and Zosyn, CTA came back negative for PE. 04/23/2019. Patient comfortably resting in bed, chest pain has improved, denies any fever, chills, nausea, vomiting, diarrhea, constipation or any urinary symptoms. Patient stated that 3 days ago he injected himself heroin and is also abusing marijuana. 04/24/2019. No acute events overnight, denies any fever, chills, nausea, vomiting, diarrhea, constipation or any urinary symptoms. Ambulatory, p.o. tolerant, having normal bowel and bladder movements. 04/25/2019. No acute events overnight, denies any fever, chills, nausea, vomiti ng, diarrhea, constipation or any urinary symptoms. Pending 2D echo and RODRÍGUEZ. 04/26/2019. No acute events overnight. Denies any fever, chills, nausea, vomiting, diarrhea, constipation or any urinary symptoms. RODRÍGUEZ scheduled for tomorrow. Reason For Visit: SIRS Physical Exam Vital Signs: Temp Pulse Resp BP Pulse Ox 98.5 F 115 H 16 142/86 H 97 04/26/19 10:59 04/26/19 14:00 04/26/19 14:00 04/26/19 10:59 04/26/19 14:00 Intake & Output 04/25/19 04/26/19 04/27/19 06:59 06:59 06:59 Intake Total 2950 1760 400 Balance 2950 1760 400 Weight 70.3 kg 65.4 kg General appearance: PRESENT: no acute distress, well-developed, well-nourished Head exam: PRESENT: atraumatic, normocephalic Eye exam: PRESENT: conjunctiva pink, EOMI, PERRLA. ABSENT: scleral icterus Ear exam: PRESENT: normal external ear exam Mouth exam: PRESENT: moist, tongue midline Teeth exam: PRESENT: poor dentation Neck exam: ABSENT: carotid bruit, JVD, lymphadenopathy, thyromegaly Respiratory exam: PRESENT: clear to auscultation natividad. ABSENT: rales, rhonchi, wheezes Cardiovascular exam: PRESENT: RRR. ABSENT: diastolic murmur, rubs, systolic murmur Pulses: PRESENT: normal dorsalis pedis pul Vascular exam: PRESENT: normal capillary refill GI/Abdominal exam: PRESENT: normal bowel sounds, soft. ABSENT: distended, guarding, mass, organolmegaly, rebound, tenderness Rectal exam: PRESENT: deferred Extremities exam: PRESENT: full ROM. ABSENT: calf tenderness, clubbing, pedal edema Neurological exam: PRESENT: alert, awake, oriented to person, oriented to place, oriented to time, oriented to situation, CN II-XII grossly intact. ABSENT: motor sensory deficit Psychiatric exam: PRESENT: appropriate affect, normal mood. ABSENT: homicidal ideation, suicidal ideation Skin exam: PRESENT: dry, intact, warm. ABSENT: cyanosis, rash Results Laboratory Results: 04/26/19 05:18 04/26/19 05:18 04/26/19 04/26/19 05:18 05:18 WBC 15.3 H RBC 4.01 L Hgb 12.3 L Hct 36.3 L MCV 91 MCH 30.8 MCHC 34.0 RDW 13.8 Plt Count 552 H Seg Neutrophils % 81.9 H Sodium 138.4 Potassium 4.4 Chloride 98 Carbon Dioxide 28 Anion Gap 12 BUN 11 Creatinine 0.64 Est GFR ( Amer) > 60 Glucose 102 Calcium 9.7 Total Bilirubin 0.4 AST 42 Alkaline Phosphatase 62 Total Protein 7.2 Albumin 3.6 Impressions: Renal Ultrasound 04/22/19 14:04 IMPRESSION: Polycystic kidneys. 5 mm nonobstructing left renal calculus. Chest X-Ray 04/22/19 16:48 IMPRESSION: 1. NO ACUTE RADIOGRAPHIC FINDING IN THE CHEST 2. In view of the given history, further evaluation with plain film right rib detail series may be helpful if clinically indicated. Chest/Abdomen CTA 04/22/19 18:29 IMPRESSION: No CT evidence of acute pulmonary emboli. Linear and bandlike opacities at the lower lungs may represent scar versus subsegmental atelectasis. Assessment and Plan - Diagnosis (1) SIRS (systemic inflammatory response syndrome) Is this a current diagnosis for this admission?: Yes Plan: Resolved. Vitals WNL, WBC trending down. Due to underlying infectious process. Patient endorsing IV heroin abuse. Received 1 dose of vancomycin and Zosyn in ED. Day 5 IV antibiotics. Day 5 IV vancomycin. Day 5 IV meropenem. Given history of IV drug abuse patient is very high risk of endocarditis. Cultures no growth so far. Pending RODRÍGUEZ. Continue empiric IV antibiotics, IV fluids, monitor vitals, follow-up cultures. (2) Heroin abuse Is this a current diagnosis for this admission?: Yes Plan: No sign of withdrawal. Patient endorsing heroin IV injection 3 days prior to admission. Urine toxicology positive for opiates and marijuana. I have extensively staff counselor him on abstinence. We will monitor for withdrawal. (3) Poor dentition Is this a current diagnosis for this admission?: Yes Plan: Patient has extremely poor dentition. The body of most of his teeth are missing just the roots partially visible. I have counseled the patient on importance of good oral hygiene espicially given his history of IV drug abuse and possible endocarditis. I have advised him to follow-up with his dentist for possible removal of his partially missing teeth. (4) Polycystic kidney disease Is this a current diagnosis for this admission?: Yes Plan: Incidental finding on renal ultrasound. Patient endorses family history of polycystic kidney disease. Patient asked to follow-up with nephrology upon discharge. Monitor kidney function as patient is receiving vancomycin. I have discussed this case with Dr. Esposito insulation cutter and he agreed to follow- up with patient as outpatient. Patient educated and informed about the importance of close medical follow-up for his underlying polycystic kidney disease. Patient voiced understanding and agreed to follow-up with Dr. Esposito as outpatient. Avoid nephrotoxic meds.
[2019-04-27] MEDS: MEROPENEM 1 GM in NORMAL SALINE 50 ML IV SCH ×2 (01:59→14:22)
[2019-04-27] MEDS: VANCOMYCIN HCL 1,250 MG in DEXTROSE 5%-WATER 250 ML IV SCH (05:39)
[2019-04-27] MEDS: HEPARIN SOD (PORCINE) 5,000 UNIT/ML 1 ML VIAL SUBCUT SCH ×3 (05:39→22:38)
[2019-04-27] MEDS ORDERED: FENTANYL CITRATE INJ/PF 100 MCG/2 ML AMPUL ONE (07:11)
[2019-04-27] MEDS ORDERED: DIPHENHYDRAMINE HCL 50 MG/ML VIAL ONE (07:11)
[2019-04-27] MEDS ORDERED: LIDOCAINE 2% VISCOUS SOLN 20 ML UDCUP ONE (07:11)
[2019-04-27] MEDS ORDERED: NALOXONE HCL INJ/PF 0.4 MG/1 ML SDV ONE (07:12)
[2019-04-27] MEDS ORDERED: FLUMAZENIL INJ 0.5 MG/5 ML VIAL ONE (07:12)
[2019-04-27 07:19] LABS: ABSOLUTE BASOPHILS # (AUTO) 0.1 10^3/uL (0.0-0.2); ABSOLUTE EOSINOPHILS # (AUTO) 0.1 10^3/uL (0.0-0.6); ABSOLUTE LYMPHOCYTES (AUTO) 1.3 10^3/uL (0.5-4.7); ABSOLUTE MONOCYTES (AUTO) 1.3 10^3/uL (0.1-1.4); ABSOLUTE NEUT (AUTO) 10.2 10^3/uL (1.7-8.2); BASOPHILS % (AUTO) 0.5 % (0-2); EOSINOPHILS % (AUTO) 0.7 % (0-6); HEMATOCRIT 40.1 % (37.9-51.0); HEMOGLOBIN 13.8 g/dL (13.5-17.0); LYMPHOCYTES % (AUTO) 10.1 % (13-45); MEAN CORPUSCULAR HEMOGLOBIN 31.3 pg (27.0-33.4); MEAN CORPUSCULAR HGB CONC 34.5 g/dL (32.0-36.0); MEAN CORPUSCULAR VOLUME 91 fl (80-97); MONOCYTES % (AUTO) 10.2 % (3-13); PLATELET COUNT 520 10^3/uL (150-450); RED BLOOD COUNT 4.42 10^6/uL (4.35-5.55); RED CELL DISTRIBUTION WIDTH 13.9 % (11.5-14.0); SEGMENTED NEUTROPHILS % (AUTO) 78.5 % (42-78); TOTAL CELLS COUNTED % (AUTO) 100 %; WHITE BLOOD COUNT 13.1 10^3/uL (4.0-10.5)
[2019-04-27 07:31] LABS: INTERNATIONAL RATION (INR) 1.09; PROTHROMBIN TIME 14.1 SEC (11.4-15.4)
[2019-04-27 07:35] LABS: ALBUMIN 4.2 g/dL (3.5-5.0); ALKALINE PHOSPHATASE 74 U/L (38-126); ANION GAP 11 (5-19); ASPARTATE AMINO TRANSFERASE 42 U/L (17-59); BILIRUBIN,DIRECT 0.1 mg/dL (0.0-0.4); BILIRUBIN,TOTAL 0.5 mg/dL (0.2-1.3); BLOOD UREA NITROGEN 16 mg/dL (7-20); CARBON DIOXIDE 30 mmol/L (22-30); CHLORIDE 96 mmol/L (98-107); GLUCOSE 127 mg/dL (75-110); POTASSIUM 4.7 mmol/L (3.6-5.0); TOTAL PROTEIN 8.6 g/dL (6.3-8.2)
[2019-04-27] MEDS ORDERED: LIDOCAINE 2% JELLY 30 ML TUBE ONE (07:37)
[2019-04-27] MEDS ORDERED: LIDOCAINE 2% JELLY 5 ML TUBE ONE (07:37)
[2019-04-27] MEDS: MIDAZOLAM 2 MG/2 ML INJ ONE ×2 (07:48→07:50)
--- NOTE | 2019-04-27 08:34 | PDOC CONSULTATION ---
Consultation Consult Date: 04/27/19 Provider Consulted: STEVIE THACKER History of Present Illness Admission Date/PCP: 04/22/19 22:47 Patient complains of: Chest pain right sided, fever and chills. History of Present Illness: AMARA HAGEN is a 28 year old male IVDU -was injecting heroin most recently 2-3 weeks ago. At admission to ED he was found be febrile upto 102 F and was started on borad spectrum IV antibiotics. RODRÍGUEZ has been requested given persistent tachycardia and concerns of infective endocarditis. Surface Echo was not performed Past Medical History Cardiac Medical History: Denies: Coronary Artery Disease, Hypertension Pulmonary Medical History: Reports: Asthma Denies: Chronic Obstructive Pulmonary Disease (COPD), Pneumonia, Respiratory Failure EENT Medical History: Denies: Ears - Hearing loss, Nose - Allergic rhinitis Neurological Medical History: Denies: Hemorrhagic CVA, Ischemic CVA, Multiple Sclerosis, Seizures Endocrine Medical History: Denies: Diabetes Mellitus Type 1, Diabetes Mellitus Type 2, Hyperthyroidism, Hypothyroidism, Obesity Renal/ Medical History: Reports: Other - Polycystic kidney disease Denies: Chronic Kidney Disease, Nephrolithiasis Malignancy Medical History: Reports: None GI Medical History: Denies: Cirrhosis, Crohn's Disease, Gastroesophageal Reflux Disease, Hepatitis, Peptic Ulcer Disease, Ulcerative Colitis Musculoskeltal Medical History: Denies: Arthritis, Gout Skin Medical History: Denies: Eczema, Psoriasis Psychiatric Medical History: Reports: Substance Abuse, Tobacco Dependency Denies: Alcohol Dependency Hematology: Denies: Anemia, Bleeding Tendencies Infectious Medical History: Reports: None Past Surgical History Past Surgical History: Reports: None Social History Lives with: Parents Smoking Status: Current Every Day Smoker Cigarettes Packs Per Day: 1 Electronic Cigarette use?: No Frequency of Alcohol Use: Rare Hx Recreational Drug Use: Yes Drugs: Heroin Hx Prescription Drug Abuse: No - Advance Directive Resuscitation Status: Full Code Family History Family History: Malignancy, Other - Polycystic kidney disease. denies: CAD, DM, Hypertension Parental Family History Reviewed: No Children Family History Reviewed: NA Sibling(s) Family History Reviewed.: NA Medication/Allergy Home Medications: No Home Medications 04/23/19 Allergies/Adverse Reactions: No Known Allergies Allergy (Verified 12/16/18 12:28) Physical Exam Vital Signs: Temp Pulse Resp BP Pulse Ox 97.8 F 115 H 14 116/82 99 04/27/19 07:25 04/27/19 08:20 04/27/19 08:20 04/27/19 08:20 04/27/19 08:20 Intake & Output 04/26/19 04/27/19 04/28/19 06:59 06:59 06:59 Intake Total 1760 1237 300 Balance 1760 1237 300 Weight 65.4 kg 67.5 kg General appearance: PRESENT: no acute distress Head exam: PRESENT: atraumatic, normocephalic Eye exam: PRESENT: conjunctiva pink, EOMI Mouth exam: PRESENT: moist Teeth exam: PRESENT: dental caries, poor dentation Respiratory exam: PRESENT: symmetrical, unlabored Cardiovascular exam: PRESENT: tachycardia GI/Abdominal exam: PRESENT: soft Musculoskeletal exam: PRESENT: normal inspection Neurological exam: PRESENT: alert, altered, awake, oriented to person, oriented to place, oriented to time, oriented to situation Skin exam: PRESENT: dry, intact Results Laboratory Results: 04/27/19 06:36 04/27/19 06:36 04/27/19 04/27/19 06:36 06:36 WBC 13.1 H RBC 4.42 Hgb 13.8 Hct 40.1 MCV 91 MCH 31.3 MCHC 34.5 RDW 13.9 Plt Count 520 H Seg Neutrophils % 78.5 H Sodium 136.9 L Potassium 4.7 Chloride 96 L Carbon Dioxide 30 Anion Gap 11 BUN 16 Creatinine 0.73 Est GFR ( Amer) > 60 Glucose 127 H Calcium 10.0 Total Bilirubin 0.5 AST 42 Alkaline Phosphatase 74 Total Protein 8.6 H Albumin 4.2 Impressions: Renal Ultrasound 04/22/19 14:04 IMPRESSION: Polycystic kidneys. 5 mm nonobstructing left renal calculus. Chest X-Ray 04/22/19 16:48 IMPRESSION: 1. NO ACUTE RADIOGRAPHIC FINDING IN THE CHEST 2. In view of the given history, further evaluation with plain film right rib detail series may be helpful if clinically indicated. Chest/Abdomen CTA 04/22/19 18:29 IMPRESSION: No CT evidence of acute pulmonary emboli. Linear and bandlike opacities at the lower lungs may represent scar versus subsegmental atelectasis. Assessment & Plan - Diagnosis (2) Leukocytosis Qualifiers: Leukocytosis type: bandemia Qualified Code(s): D72.825 - Bandemia Is this a current diagnosis for this admission?: Yes Plan: IVDU High suspicion of IE. Will proceed with RODRÍGUEZ as TTE was not performed yet - Notes Notes: IVDU Leukocytosis and fever Will proceed with RODRÍGUEZ Informed consent obtained. Risks and benefits discussed. risks include as piration, medication side effects, trauma to oropharhyngeal mucosa and esophageal trauma.
--- NOTE | 2019-04-27 09:53 | Progress Note ---
Provider Note Provider Note: Lefty Cole PANCHO 1990 Date of Service: 04/27/2019 [facility] Telephone Advice Consultation Chart reviewed. Patient is a 28-year-old man with intravenous drug use, o ine, last time was about 1 week prior to admission. Patient went to the ED due to right chest pain, malaise, fatigue. He complained of low garde fever and chills. In the ED he was found with fever of 102, he was tachycardic. BP has been stable. He had marked leukocytosis of 18k. He had a urine toxicology positive for opiates and THC. Blood cultures and urine culture were done. He was admitted for IV antibiotics. He had a chest CTA that was negative for PE but there was a band-like opacity representing scar vs atelectasis. He had a renal US that demonstrated polycystic kidneys. Per notes, patient has very poor dentition with caries, missing teeth. No other sign of infection per notes. Patient continues on vancomycin and meropenem, he had a RODRÍGUEZ this morning to rule out endocarditis. ID consulted for recommendations. PMH: IVDU PCKD PSH: Unknown Allergies No Known Allergies Allergy (Verified 12/16/18 12:28) Antibiotics: Vancomycin Meropenem Vital Signs: Temp Pulse Resp BP Pulse Ox 97.8 F 115 H 14 116/82 99 04/27/19 07:25 04/27/19 08:20 04/27/19 08:20 04/27/19 08:20 04/27/19 08:20 Intake & Output 04/26/19 04/27/19 04/28/19 06:59 06:59 06:59 Intake Total 1760 1237 550 Balance 1760 1237 550 Weight 65.4 kg 67.5 kg Weight/Height Weight 67.5 kg Height 5 ft 9 in Laboratories: 04/27/19 06:36 04/27/19 06:36 MCV 91 fl (80-97) 04/27/19 06:36 MCH 31.3 pg (27.0-33.4) 04/27/19 06:36 MCHC 34.5 g/dL (32.0-36.0) 04/27/19 06:36 RDW 13.9 % (11.5-14.0) 04/27/19 06:36 Seg Neutrophils % 78.5 % (42-78) H 04/27/19 06:36 VBG pH 7.47 (7.30-7.42) H 04/22/19 18:55 VBG pCO2 37.2 mmHg (35-63) 04/22/19 18:55 VBG HCO3 26.5 mmol/L (20-32) 04/22/19 18:55 VBG Base Excess 2.9 mmol/L 04/22/19 18:55 Chloride 96 mmol/L (98-107) L 04/27/19 06:36 Carbon Dioxide 30 mmol/L (22-30) 04/27/19 06:36 Anion Gap 11 (5-19) 04/27/19 06:36 Est GFR ( Amer) > 60 (>60) 04/27/19 06:36 Glucose 127 mg/dL (75-110) H 04/27/19 06:36 Lactic Acid 1.2 mmol/L (0.7-2.1) 04/22/19 18:55 Calcium 10.0 mg/dL (8.4-10.2) 04/27/19 06:36 Total Bilirubin 0.5 mg/dL (0.2-1.3) 04/27/19 06:36 AST 42 U/L (17-59) 04/27/19 06:36 Alkaline Phosphatase 74 U/L (38-126) 04/27/19 06:36 Total Protein 8.6 g/dL (6.3-8.2) H 04/27/19 06:36 Albumin 4.2 g/dL (3.5-5.0) 04/27/19 06:36 Lipase 40.3 U/L (23-300) 04/22/19 14:23 Urine Color YELLOW 04/22/19 14:23 Urine Appearance SLIGHTLY-CLOUDY 04/22/19 14:23 Urine pH 5.0 (5.0-9.0) 04/22/19 14:23 Ur Specific [place] 1.027 04/22/19 14:23 Urine Protein 100 mg/dL (NEGATIVE) H 04/22/19 14:23 Urine Glucose (UA) NEGATIVE mg/dL (NEGATIVE) 04/22/19 14:23 Urine Ketones NEGATIVE mg/dL (NEGATIVE) 04/22/19 14:23 Urine Blood SMALL (NEGATIVE) H 04/22/19 14:23 Urine RBC (Auto) 7 /HPF 04/22/19 14:23 Microbiology: Blood cultures: 04/22/19 NGTD Urine Culture: 04/22/19 NGTD Radiology: Renal Ultrasound 04/22/19 14:04 IMPRESSION: Polycystic kidneys. 5 mm nonobstructing left renal calculus. Chest X-Ray 04/22/19 16:48 IMPRESSION: 1. NO ACUTE RADIOGRAPHIC FINDING IN THE CHEST 2. In view of the given history, further evaluation with plain film right rib detail series may be helpful if clinically indicated. Chest/Abdomen CTA 04/22/19 18:29 IMPRESSION: No CT evidence of acute pulmonary emboli. Linear and bandlike opacities at the lower lungs may represent scar versus subsegmental atelectasis. RODRÍGUEZ 04/27/19: Result pending Assessment and Recommendations: Patient with IVDU admitted due to fever, chest pain, SIRS high suspicion for endocarditis. Patient had a fever spike of 102 while in the ED, after that he remains afebrile but tachycardic. He had significant leukocytosis that has improved from 18->13k. He does have polycystic kidney disease, but no urinary t ract infection. Blood cultures remain negative as well. CTA chest without significant findings. A RODRÍGUEZ will be done today, will follow results. Potential source of infection is poor dentition, he might have an abscess. Will recommend imaging of his maxillofacial area to rule out a deep infection responsible for his symptoms (CT scan). He has used IV drugs recently, but would expect blood cultures to be positive. In terms of antibiotics no evidence of MRSA to justify continuation of vancomycin, consider to discontinue. Pseudomonas has not been isolated, therefore will recommend to de escalate meropenem to Unasyn or ceftriaxone to cover for oral hudson. Will follow RODRÍGUEZ and maxillofacial imaging to give final recommendations. Please call if new findings or questions. Judy Scales MD [facility] Infectious Disease [phone]
[2019-04-27] MEDS: LISINOPRIL 5 MG TABLET PO SCH (10:41)
--- NOTE | 2019-04-27 12:42 | XCELERA REPORT ---
Study ID: [id number] [address] [id number] Transesophageal Echocardiogram Report Name: AMARA HAGEN Age: 28 yrs Gender: Male : 1990 Patient Status: Inpatient Patient Location: [address] [place] [address] Study Date: 04/27/2019 08:30 AM History: IVDU Leukocytosis Tachycardia Reason For Study: ENDOCARDITIS Ordering Physician: TORSTEN ANDERSON Performed By: Sanjana Freeman Interpretation Summary Left ventricular systolic function is normal. Ejection Fraction = >55%. The right ventricular systolic function is normal. There is trace mitral regurgitation. There is no vegetation seen on the mitral valve. There is trace tricuspid regurgitation. There is no tricuspid valve vegetation. The aortic valve is trileaflet. There is no aortic valvular vegetation. There is no pericardial effusion. Procedure A complete two-dimensional transesophageal echocardiogram was performed (2D, spectral and color flow Doppler). Informed consent for Transesophageal Echocardiogram, and use of a contrast agent as needed, was obtained prior to the procedure. An intravenous line was placed. A topical anesthetic agent was used for oropharangeal anesthesia. A bite block was inserted. IV conscious sedation was administered using Midazolam and Fentanyl per protocol. The patient's vital signs, including blood pressure, heart rate, pulse oximetry and cardiac rhythm were monitored thoughout the procedure. A multifrequency, mutliplane transesophageal echocardiographic endoscope was inserted and manipulated in the standard fashion to achieve multiplane views. The transesophageal probe was passed without difficulty. The usual views were obtained; basal, mid-esophageal, transgastric and aortic views. The patient tolerated the procedure well without evidence of orophangeal or esophageal trauma. Subsequent to all the images being obtained the probe was removed with out trauma. Left Ventricle The left ventricle is normal in size. There is normal left ventricular wall thickness. Left ventricular systolic function is normal. Ejection Fraction = >55%. No regional wall motion abnormalities noted. Right Ventricle The right ventricle is normal size. The right ventricular systolic function is normal. Atria The interatrial septum is intact with no evidence for an atrial septal defect. The left atrial size is normal. Mitral Valve The mitral valve is grossly normal. There is no vegetation seen on the mitral valve. There is trace mitral regurgitation. Tricuspid Valve The tricuspid valve is normal. There is no tricuspid valve vegetation. There is trace tricuspid regurgitation. Aortic Valve The aortic valve opens well. The aortic valve is trileaflet. There is no aortic valvular vegetation. No hemodynamically significant valvular aortic stenosis. No aortic regurgitation is present. Pulmonic Valve The pulmonic valve is normal in structure and function. Pericardium There is no pericardial effusion. : TORSTEN ANDERSON Anil
[2019-04-27] MEDS: AMPICILLIN SODIUM/SULBACTAM NA 3 GM in NORMAL SALINE 100 ML IV SCH ×2 (16:19→22:39)
[2019-04-27 16:20] VITALS: BP 130/68
--- NOTE | 2019-04-27 17:14 | PDOC PROGRESS REPORT ---
Subjective Progress Note for:: 04/27/19 Subjective:: No adverse events overnight. No new complaints. Vital signs been stable. Eating and drinking without difficulty. Infectious disease recommended getting a CT scan of the maxillofacial area does see if he had a dental abscess as a cause of his presentation but the patient was reluctant to do so because he wants to go home. His RODRÍGUEZ today was reported to be negative for vegetations on the valves. Reason For Visit: SIRS Physical Exam Vital Signs: Temp Pulse Resp BP Pulse Ox 98.3 F 111 H 21 H 130/68 H 99 04/27/19 16:00 04/27/19 16:00 04/27/19 16:00 04/27/19 16:00 04/27/19 16:00 Intake & Output 04/26/19 04/27/19 04/28/19 06:59 06:59 06:59 Intake Total 1760 1237 550 Balance 1760 1237 550 Weight 65.4 kg 67.5 kg General appearance: PRESENT: no acute distress, cooperative, disheveled, thin Teeth exam: PRESENT: poor dentation Respiratory exam: PRESENT: clear to auscultation natividad, symmetrical, unlabored. ABSENT: accessory muscle use, chest wall tenderness, crackles, prolonged expiratory phas, rhonchi, tachypnea, wheezes Cardiovascular exam: PRESENT: RRR, +S1, +S2 Pulses: PRESENT: normal carotid pulses Vascular exam: PRESENT: normal capillary refill GI/Abdominal exam: PRESENT: normal bowel sounds, soft. ABSENT: distended, guarding, rebound, tenderness Extremities exam: ABSENT: clubbing, pedal edema Musculoskeletal exam: PRESENT: normal inspection. ABSENT: deformity Neurological exam: PRESENT: alert, awake, oriented to person, oriented to place, oriented to situation Psychiatric exam: PRESENT: flat affect Skin exam: PRESENT: dry Results Laboratory Results: 04/27/19 06:36 04/27/19 06:36 04/27/19 04/27/19 06:36 06:36 WBC 13.1 H RBC 4.42 Hgb 13.8 Hct 40.1 MCV 91 MCH 31.3 MCHC 34.5 RDW 13.9 Plt Count 520 H Seg Neutrophils % 78.5 H Sodium 136.9 L Potassium 4.7 Chloride 96 L Carbon Dioxide 30 Anion Gap 11 BUN 16 Creatinine 0.73 Est GFR ( Amer) > 60 Glucose 127 H Calcium 10.0 Total Bilirubin 0.5 AST 42 Alkaline Phosphatase 74 Total Protein 8.6 H Albumin 4.2 Impressions: Renal Ultrasound 04/22/19 14:04 IMPRESSION: Polycystic kidneys. 5 mm nonobstructing left renal calculus. Chest X-Ray 04/22/19 16:48 IMPRESSION: 1. NO ACUTE RADIOGRAPHIC FINDING IN THE CHEST 2. In view of the given history, further evaluation with plain film right rib detail series may be helpful if clinically indicated. Chest/Abdomen CTA 04/22/19 18:29 IMPRESSION: No CT evidence of acute pulmonary emboli. Linear and bandlike opacities at the lower lungs may represent scar versus subsegmental atelectasis. Assessment and Plan - Diagnosis (1) IV drug abuse Is this a current diagnosis for this admission?: Yes Plan: Strongly encourage cessation. Because of his history of this, RODRÍGUEZ was performed to evaluate for source of infection. RODRÍGUEZ was negative. Blood cultures negative. (2) Poor dentition Is this a current diagnosis for this admission?: Yes Plan: CT of the maxillofacial area as noted above. If it is negative, he can probably go home without antibiotics. If it is positive, he will need prescription for antibiotics plus outpatient follow-up with the dentist. (3) SIRS (systemic inflammatory response syndrome) Is this a current diagnosis for this admission?: Yes Plan: Looking for a source as noted above, so far no source has been noted - Time Time Spent with patient: 15-24 minutes
--- NOTE | 2019-04-27 18:55 | RADIOLOGY REPORT (SQ) ---
EXAM DESCRIPTION: CT FACIAL AREA WITH COMPLETED DATE/TIME: 04/27/2019 5:50 pm REASON FOR STUDY: SIRS, rule out dental abscess COMPARISON: None. TECHNIQUE: Post contrast images through the facial bones and orbits windowed for bone and soft tissu e. Additional coronal and sagittal reconstructed images reviewed. All images stored on PACS. All CT scanners at this facility use dose modulation, iterative reconstruction, and/or weight based d osing when appropriate to reduce radiation dose to as low as reasonably achievable (ALARA). [facility]: Dose Right [facility]: CareDose [facility]: Dose Right [facility]: Teradose 4D [facility]: Eventcheq CONTRAST TYPE AND DOSE: 50 mL Omnipaque 350- low osmolar. RENAL FUNCTION: B BUN 16 creatinine 0.73 RADIATION DOSE: . LIMITATIONS: None. FINDINGS: Imaging the face is performed after injecting contrast. Multiple dental caries are presen t. Small areas of apical lucency are seen in multiple teeth. No large abscess is seen. There is no evidence of an abscess extending beyond the bone. IMPRESSION: Extensive dental disease with multiple caries an with small apical lucencies involving m ultiple teeth suggesting small apical abscesses. TECHNICAL DOCUMENTATION: JOB ID: [id number] Quality ID # [id number]: Final reports with documentation of one or more dose reduction techniques (e.g., Au tomated exposure control, adjustment of the mA and/or kV according to patient size, use of iterative reconstruction technique) 2010 [employer]- All Rights Reserved Reading location - IP/workstation name: [email or web address]
[2019-04-28] MEDS: AMPICILLIN SODIUM/SULBACTAM NA 3 GM in NORMAL SALINE 100 ML IV SCH (03:15)
[2019-04-28] MEDS: HEPARIN SOD (PORCINE) 5,000 UNIT/ML 1 ML VIAL SUBCUT SCH (05:28)
--- NOTE | 2019-04-28 08:21 | Progress Note ---
Provider Note Provider Note: [facility] Telephone Advice Consultation Chart reviewed. Patient initially evaluated due to suspicion of IVDU related complications due to fever, tachycardia, leukocytosis. He was admitted with SIRS, urine toxicology positive for opiates and THC, he acknowledged using heroin recently. All infectious workup was negative to explain patient's fever and leukocytosis. He was started on broad spectrum antibiotics with significant clinical improvement. Blood cultures remain negative, he is afebrile and HD stable. Leukocytosis markedly improved. RODRÍGUEZ negative for vegetations. A CT scan of maxillofacial area was recommended to assess for abscesses and there is extensive dental disease with multiple small apical abscesses. He is otherwise stable and wants to go home. Allergies: No Known Allergies Allergy (Verified 12/16/18 12:28) Vital Signs: Temp Pulse Resp BP Pulse Ox 98.3 F 111 H 21 H 130/68 H 99 04/27/19 16:00 04/27/19 16:00 04/27/19 16:00 04/27/19 16:00 04/27/19 16:00 Intake & Output 04/27/19 04/28/19 04/29/19 06:59 06:59 06:59 Intake Total 1237 810 Balance 1237 810 Weight 67.5 kg 63.6 kg Weight/Height Weight 63.6 kg Height 5 ft 9 in Laboratories: 04/27/19 06:36 04/27/19 06:36 MCV 91 fl (80-97) 04/27/19 06:36 MCH 31.3 pg (27.0-33.4) 04/27/19 06:36 MCHC 34.5 g/dL (32.0-36.0) 04/27/19 06:36 RDW 13.9 % (11.5-14.0) 04/27/19 06:36 Seg Neutrophils % 78.5 % (42-78) H 04/27/19 06:36 VBG pH 7.47 (7.30-7.42) H 04/22/19 18:55 VBG pCO2 37.2 mmHg (35-63) 04/22/19 18:55 VBG HCO3 26.5 mmol/L (20-32) 04/22/19 18:55 VBG Base Excess 2.9 mmol/L 04/22/19 18:55 Chloride 96 mmol/L (98-107) L 04/27/19 06:36 Carbon Dioxide 30 mmol/L (22-30) 04/27/19 06:36 Anion Gap 11 (5-19) 04/27/19 06:36 Est GFR ( Amer) > 60 (>60) 04/27/19 06:36 Glucose 127 mg/dL (75-110) H 04/27/19 06:36 Lactic Acid 1.2 mmol/L (0.7-2.1) 04/22/19 18:55 Calcium 10.0 mg/dL (8.4-10.2) 04/27/19 06:36 Total Bilirubin 0.5 mg/dL (0.2-1.3) 04/27/19 06:36 AST 42 U/L (17-59) 04/27/19 06:36 Alkaline Phosphatase 74 U/L (38-126) 04/27/19 06:36 Total Protein 8.6 g/dL (6.3-8.2) H 04/27/19 06:36 Albumin 4.2 g/dL (3.5-5.0) 04/27/19 06:36 Lipase 40.3 U/L (23-300) 04/22/19 14:23 Urine Color YELLOW 04/22/19 14:23 Urine Appearance SLIGHTLY-CLOUDY 04/22/19 14:23 Urine pH 5.0 (5.0-9.0) 04/22/19 14:23 Ur Specific [place] 1.027 04/22/19 14:23 Urine Protein 100 mg/dL (NEGATIVE) H 04/22/19 14:23 Urine Glucose (UA) NEGATIVE mg/dL (NEGATIVE) 04/22/19 14:23 Urine Ketones NEGATIVE mg/dL (NEGATIVE) 04/22/19 14:23 Urine Blood SMALL (NEGATIVE) H 04/22/19 14:23 Urine RBC (Auto) 7 /HPF 04/22/19 14:23 Microbiology: 04/22/19 20:30 Blood Blood Culture - Final NO GROWTH IN 5 DAYS 04/22/19 18:55 Blood Blood Culture - Final NO GROWTH IN 5 DAYS Urine Culture: Negative Radiology: Renal Ultrasound 04/22/19 14:04 IMPRESSION: Polycystic kidneys. 5 mm nonobstructing left renal calculus. Chest X-Ray 04/22/19 16:48 IMPRESSION: 1. NO ACUTE RADIOGRAPHIC FINDING IN THE CHEST 2. In view of the given history, further evaluation with plain film right rib detail series may be helpful if clinically indicated. Chest/Abdomen CTA 04/22/19 18:29 IMPRESSION: No CT evidence of acute pulmonary emboli. Linear and bandlike opacities at the lower lungs may represent scar versus subsegmental atelectasis. Facial Bones CT 04/27/19 00:00 IMPRESSION: Extensive dental disease with multiple caries an with small apical lucencies involving multiple teeth suggesting small apical abscesses. Assessment and recommendations: Patient evaluated due to SIRS in the setting of IVDU and poor dentition. Patient has clinically improved on broad spectrum antibiotics. Now that endocarditis has been ruled out and all his cultures are negative, systemic infection has been ruled out. However, he does have extensive dental disease with multiple small apical abscesses. He will need dental evaluation (outpatient) and will recommend augmentin 500/125 mg TID for 10 days while he makes an appointment with the dentist. He is high risk for getting endocarditis not only because of IVDU but because of his extensive dental disease which inc reases the risk of endocarditis by Streptococcus spp. Patient needs to be aware of potential adverse effects with augmentin including antibiotic related diarrhea including C diff infection. Please call back if any questions. Judy Scales MD [facility] Infectious Disease [phone]
--- NOTE | 2019-04-28 15:50 | Left Against Medical Advice ---
Against Medical Advice Admission Date/Time: 04/22/19 22:47 Primary Care Provider: Date of Patient Emigration: 04/28/19 - Diagnosis: (1) IV drug abuse Is this a current diagnosis for this admission?: Yes (2) Poor dentition Is this a current diagnosis for this admission?: Yes (3) SIRS (systemic inflammatory response syndrome) Is this a current diagnosis for this admission?: Yes - Summary: Summary: Please see Admission and Progress Notes as well. AMARA HAGEN is a 28 M, who LEFT AGAINST MEDICAL ADVICE. The Patient was admitted on 04/22/19 22:47.
== END 2019-04-28 09:00 | disposition left against medical advice (07) | DRG 894 ==
LOC: ER 13:11 → EH 22:47 → 4S 04-23 02:10
PROVIDERS: ADMIT Emergency Medicine; ATTEND Internal Medicine
DX: F19.10 Other psychoactive substance abuse, uncomplicated (principal); R65.10 Systemic inflammatory response syndrome (SIRS) of non-infectious origin without acute organ dysfunction; Q61.3 Polycystic kidney, unspecified; R10.9 Unspecified abdominal pain; K08.89 Other specified disorders of teeth and supporting structures; F17.210 Nicotine dependence, cigarettes, uncomplicated; F11.10 Opioid abuse, uncomplicated; F12.10 Cannabis abuse, uncomplicated
CPT/HCPCS: 36415; 70487; 71046; 71275; 76770; 80048; 80053; 80202; 80307; 81001; 82803; 82962; 83605; 83690; 85025; 85610; 87040; 87086; 93005; 93010; 93312; 93325; 96365; 96375; 99291; J0295; J1200; J1885; J2185; J2250; J2310; J2543; J3010; J3370; J3490; J7030; J7050; J7060

== ENCOUNTER 2019-10-06 11:16 | Emergency (ER) | payer SELFPAY ==
[2019-10-06 11:22] VITALS: BP 107/85
[2019-10-06] MEDS ORDERED: LIDOCAINE 1% INJ-PF (10 MG/ML) 30 ML SDV INJ ONE (11:31)
[2019-10-06] MEDS ORDERED: CEFTRIAXONE INJ 1000 MG VIAL IM ONE (11:31)
--- NOTE | 2019-10-06 12:06 | ER Document Report ---
HPI - HPI Time Seen by Provider: 10/06/19 11:27 Pain Level: 1 Notes: 28-year-old male presents emergency room for complaints of a staph infection to his right upper extremity from injecting IV heroin. Patient states he has had a history of this before so he wanted to "get it checked out sooner". Has not tried any vame-kth-deuikzr medications. Patient has had this before so he states he is aware what to look for with skin infections. Denies any abscesses on his body. Patient states that he does inject heroin. denies fevers, chills, chest pain,palpitations, shortness of breath, dyspnea, nausea, vomiting, diarrhea, abdominal pain, hematuria,blurred vision, double vision, loss of vision, speech changes, LH, dizziness, syncope, headaches, wheezing, ST, URI, neck pain, weakness, bowel or bladder dysfunction, saddle anesthesia, numbness or tingling in bilateral upper or lower extremities equally, muscle paralysis, weakness in bilateral upper or lower extremities equally. - REPRODUCTIVE Reproductive: DENIES: : Past Medical History - General Information source: Patient - Social History Smoking Status: Current Every Day Smoker Chew tobacco use (# tins/day): No Frequency of alcohol use: None Drug Abuse: None Family History: Malignancy, Other - Polycystic kidney disease. denies: CAD, DM, Hypertension Patient has suicidal ideation: No Patient has homicidal ideation: No - Past Medical History Cardiac Medical History: Denies: Hx Coronary Artery Disease, Hx Hypertension Pulmonary Medical History: Reports: Hx Asthma Denies: Hx COPD, Hx Pneumonia, Hx Respiratory Failure Neurological Medical History: Denies: Hx Seizures Endocrine Medical History: Denies: Hx Diabetes Mellitus Type 1, Hx Diabetes Mellitus Type 2, Hx Hyperthyroidism, Hx Hypothyroidism Renal/ Medical History: Denies: Hx Peritoneal Dialysis GI Medical History: Denies: Hx Cirrhosis, Hx Crohn's Disease, Hx Gastroesophageal Reflux Disease, Hx Hepatitis, Hx Ulcerative Colitis Musculoskeletal Medical History: Denies Hx Arthritis, Denies Hx Gout Skin Medical History: Denies Hx Eczema, Denies Hx Psoriasis Infectious Medical History: Denies: Hx Hepatitis - Immunizations Hx Diphtheria, Pertussis, Tetanus Vaccination: No Vertical Provider Document - CONSTITUTIONAL Agree With Documented VS: Yes Exam Limitations: No Limitations General Appearance: WD/WN Notes: PHYSICAL EXAMINATION:reviewed vital signs by RN GENERAL: Well-appearing, well-nourished and in no acute distress. HEAD: Atraumatic, normocephalic. EYES: Pupils equal round and reactive to light, extraocular movements intact, sclera anicteric, conjunctiva are normal. ENT: Nares patent, oropharynx clear without exudates. Moist mucous membranes. NECK: Normal range of motion, supple without lymphadenopathy LUNGS: Breath sounds clear to auscultation bilaterally and equal. No wheezes rales or rhonchi. HEART: Regular rate and rhythm without murmurs ABDOMEN: Soft, nontender, nondistended abdomen. No guarding, no rebound. No masses appreciated. Musculoskeletal: Normal range of motion, no pitting or edema. No cyanosis. NEUROLOGICAL: Cranial nerves grossly intact. Normal speech, normal gait. Normal sensory, motor exams PSYCH: Normal mood, normal affect. SKIN: Warm, Dry, normal turgor, no rashes or lesions noted. - INFECTION CONTROL TRAVEL OUTSIDE OF THE [place] IN LAST 30 DAYS: No Course - Vital Signs Vital signs: Temp Pulse Resp BP Pulse Ox 97.8 F 104 H 16 107/85 99 10/06/19 11:21 10/06/19 11:21 10/06/19 11:21 10/06/19 11:21 10/06/19 11:21 Discharge - Discharge Clinical Impression: Cellulitis and abscess of upper arm and forearm, Intravenous drug abuse, episodic Condition: Stable Disposition: HOME, SELF-CARE Instructions: MRSA Cellulitis ([facility]), Rocephin ([facility]), Trimethoprim-Sulfa ([facility]) Additional Instructions: Cellulitis You have an infection of your skin and underlying soft tissues called cellulitis. This is due to bacteria, which can enter through any break in the skin, or even through an irritated hair follicle. Untreated, cellulitis will usually worsen. Antibiotics are required. Usually, warm packs or warm soaks, and elevation of the infected area are recommended. You should start getting better within 24 to 36 hours. Most infections respond quickly to the right medication. Follow-up care is important, however, to check for abscess (boil) formation, unsuspected foreign body, or resistant infection. If you develop fever, chills, or if the area of infection is becoming rapidly more swollen or painful, call the doctor at once. Prescriptions: Sulfamethoxazole/Trimethoprim [Bactrim Ds Tablet] 1 each PO BID #20 tablet Referrals: SAMIR MO MD [COMMUNITY BASED STAFF] - Follow up in 3-5 days
== END 2019-10-06 11:46 | disposition home or self-care (01) ==
LOC: ER 11:16
DX: L03.119 Cellulitis of unspecified part of limb (principal); L02.419 Cutaneous abscess of limb, unspecified; F17.200 Nicotine dependence, unspecified, uncomplicated; J45.909 Unspecified asthma, uncomplicated; F19.10 Other psychoactive substance abuse, uncomplicated
CPT/HCPCS: 99283; 96372; J3490; J0696